=== PATIENT | male | born 1975 | race Caucasian/White ===

== ENCOUNTER 2017-06-12 15:21 | Emergency (ER) | payer SELFPAY ==
[2017-06-12 15:29] VITALS: BP 153/94
[2017-06-12] MEDS ORDERED: Sodium Chloride 0.9% 10 ML Syringe FLUSH PRN (15:38)
[2017-06-12] MEDS ORDERED: Sodium Chloride 0.9% 1,000 ML IV SCH (15:45)
--- NOTE | 2017-06-12 17:15 | EDM.PDOC ---
ED HPI GENERAL MEDICAL PROBLEM - General Chief Complaint: Flank Pain Stated Complaint: R SIDE PAIN Time Seen by Provider: 06/12/17 15:29 Source of Information: Reports: Patient History Limitations: Reports: No Limitations - History of Present Illness INITIAL COMMENTS - FREE TEXT/NARRATIVE: The patient presents with right flank pain that started earlier today. He also has some right sided abdominal pain. He has nausea but no vomiting. The pain is better. He took 4 shots of fireball. He has no dysuria and no hematuria. He has never had kidney stones. He still has his appendix. Onset: Sudden Duration: Hour(s): Location: Reports: Abdomen (Right side and right flank) Quality: Reports: Sharp Severity: Severe Improves with: Reports: None Worsens with: Reports: None Associated Symptoms: Reports: Nausea/Vomiting. Denies: Confusion, Fever/Chills , Headaches, Shortness of Breath Right Flank Pain Score (Numeric/FACES): 4 - Related Data Allergies Allergy/AdvReac Type Severity Reaction Status Date / Time No Known Allergies Allergy Verified 06/12/17 15:26 Home Meds: Home Meds Tamsulosin HCl [Flomax] 0.4 mg PO DAILY #7 cap.er.24h 06/12/17 [Rx] oxyCODONE HCl/Acetaminophen [Percocet 5-325 mg Tablet] 1 - 2 each PO Q6HR PRN # 20 tablet 06/12/17 [Rx] Past Medical History Cardiovascular History: Reports: Hypertension Musculoskeletal History: Reports: Fracture Psychiatric History: Reports: Anxiety - Past Surgical History Cardiovascular Surgical History: Reports: None Musculoskeletal Surgical History: Reports: None Social & Family History - Family History Family Medical History: Noncontributory - Tobacco Use Smoking Status *Q: Current Every Day Smoker Years of Tobacco use: 15 Packs/Tins Daily: 0.5 - Caffeine Use Caffeine Use: Reports: None - Recreational Drug Use Recreational Drug Use: No ED ROS GENERAL - Review of Systems Review Of Systems: See Below Constitutional: Reports: No Symptoms HEENT: Reports: No Symptoms Respiratory: Reports: No Symptoms Cardiovascular: Reports: No Symptoms Endocrine: Reports: No Symptoms GI/Abdominal: Reports: Abdominal Pain, Nausea. Denies: Diarrhea, Vomiting : Reports: Flank Pain (Right) ED EXAM, GI/ABD - Physical Exam Exam: See Below Exam Limited By: No Limitations General Appearance: Alert, No Apparent Distress Ears: Normal External Exam Nose: Normal Inspection Head: Atraumatic, Normocephalic Neck: Normal Inspection Respiratory/Chest: No Respiratory Distress, Lungs Clear, Normal Breath Sounds Cardiovascular: Regular Rate, Rhythm, No Edema, No Murmur GI/Abdominal Exam: Soft, Non-Tender, No Organomegaly, No Mass Back Exam: CVA Tenderness (R) (Mild) Course - Vital Signs Last Recorded V/S: Last Vital Signs Temp 98.5 F 06/12/17 15:26 Pulse 95 06/12/17 15:26 Resp 16 06/12/17 17:05 BP 153/94 H 06/12/17 15:26 Pulse Ox 98 06/12/17 17:05 - Orders/Labs/Meds Orders: Active Orders 24 hr Category Date Time Status Peripheral IV Care [RC] . DIRECTED Care 06/12/17 15:38 Active Abdomen Pelvis wo Cont [CT] Stat Exams 06/12/17 15:38 Taken Sodium Chloride 0.9% [Normal Saline] 1,000 ml Med 06/12/17 15:45 Active IV ASDIRECTED Sodium Chloride 0.9% [Saline Flush] Med 06/12/17 15:38 Active 10 ml FLUSH ASDIRECTED PRN Peripheral IV Insertion Adult [OM.PC] Stat Oth 06/12/17 15:38 Ordered Medication Orders Sodium Chloride (Normal Saline) 1,000 mls @ 125 mls/hr IV ASDIRECTED ADRIENNE Last Admin: 06/12/17 16:01 Dose: 125 mls/hr Sodium Chloride (Saline Flush) 10 ml FLUSH ASDIRECTED PRN PRN Reason: Keep Vein Open Last Admin: 06/12/17 16:02 Dose: 10 ml Labs: Laboratory Tests 06/12/17 06/12/17 06/12/17 Range/Units 15:55 15:55 15:55 WBC 6.85 (4.23-9.07) K/mm3 RBC 4.35 L (4.63-6.08) M/mm3 Hgb 14.1 (13.7-17.5) gm/L Hct 41.2 (40.1-51.0) % MCV 94.7 H (79.0-92.2) fl MCH 32.4 H (25.7-32.2) pg MCHC 34.2 (32.2-35.5) g/dl RDW Std Deviation 50.4 H (35.1-43.9) fL Plt Count 125 L (163-337) K/mm3 MPV 10.5 (9.4-12.3) fl Neut % (Auto) 67.1 (34.0-67.9) % Lymph % (Auto) 18.0 L (21.8-53.1) % Winn % (Auto) 13.6 H (5.3-12.2) % Eos % (Auto) 0.3 L (0.8-7.0) Baso % (Auto) 0.9 (0.1-1.2) % Neut # (Auto) 4.60 (1.78-5.38) K/mm3 Lymph # (Auto) 1.23 L (1.32-3.57) K/mm3 Winn # (Auto) 0.93 H (0.30-0.82) K/mm3 Eos # (Auto) 0.02 L (0.04-0.54) K/mm3 Baso # (Auto) 0.06 (0.01-0.08) K/mm3 Sodium 133 L (136-145) mEq/L Potassium 3.2 L (3.5-5.1) mEq/L Chloride 99 (98-107) mEq/L Carbon Dioxide 22 (21-32) mEq/L Anion Gap 15.2 H (5-15) BUN 9 (7-18) mg/dL Creatinine 0.9 (0.7-1.3) mg/dL Est Cr Clr Drug Dosing 126.49 mL/min Estimated GFR (MDRD) > 60 (>60) mL/min BUN/Creatinine Ratio 10.0 L (14-18) Glucose 127 H (74-106) mg/dL Calcium 9.2 (8.5-10.1) mg/dL Total Bilirubin 1.5 H (0.2-1.0) mg/dL AST 313 H (15-37) U/L ALT 144 H (16-63) U/L Alkaline Phosphatase 94 (46-116) U/L Total Protein 8.6 H (6.4-8.2) g/dl Albumin 3.4 (3.4-5.0) g/dl Globulin 5.2 gm/dL Albumin/Globulin Ratio 0.7 L (1-2) Lipase 346 (73-393) U/L Urine Color Yellow (Yellow) Urine Appearance Clear (Clear) Urine pH 6.5 (5.0-8.0) Ur Specific [place] 1.010 (1.005-1.030) Urine Protein Negative (Negative) Urine Glucose (UA) Negative (Negative) Urine Ketones Negative (Negative) Urine Occult Blood Trace-lysed H (Negative) Urine Nitrite Negative (Negative) Urine Bilirubin Negative (Negative) Urine Urobilinogen 0.2 (0.2-1.0) Ur Leukocyte Esterase Negative (Negative) Urine RBC 0-5 (0-5) /hpf Urine WBC 0-5 (0-5) /hpf Ur Epithelial Cells 0-5 (0-5) /hpf Urine Bacteria Not seen (FEW) /hpf Urine Mucus Not seen (FEW) /hpf Meds: Medications Generic Name Dose Route Start Last Admin Trade Name Freq PRN Reason Stop Dose Admin Sodium Chloride 1,000 mls @ 125 mls/hr 06/12/17 15:45 06/12/17 16:01 Normal Saline IV 125 mls/hr ASDIRECTED ADRIENNE Administration Sodium Chloride 10 ml 06/12/17 15:38 06/12/17 16:02 Saline Flush FLUSH 10 ml ASDIRECTED PRN Administration Keep Vein Open - Re-Assessments/Exams Free Text/Narrative Re-Assessment/Exam: 06/12/17 17:11 I ordered an IV NS at 125mL/hr, labs, UA and CT of his abdomen and pelvis to look for a kidney stone. His WBC was normal. His platelets were a little low at 125. His K was a little low at 3.2. His AST was elevated at 313. His ALT was elevated at 144. His lipase was normal. His UA shows blood but no UTI. His CT shows mild to moderate right perinephric stranding and hydronephrosis secondary to a 4mm calculus located in the right ureter at the level of L5. Remainder of findings as described above. He still does not have pain. I will get him on some percocet and flomax and follow up with Dr Man. Departure - Departure Time of Disposition: 17:15 Disposition: Home, Self-Care 01 Condition: Good Clinical Impression: Ureteric colic, Kidney stone on right side - Discharge Information Prescriptions: oxyCODONE HCl/Acetaminophen [Percocet 5-325 mg Tablet] 1 - 2 each PO Q6HR PRN # 20 tablet PRN Reason: Pain Tamsulosin HCl [Flomax] 0.4 mg PO DAILY #7 cap.er.24h Referrals: PCP,None [Primary Care Provider] - Levar Man MD [Physician] - 1 Week Forms: ED Department Discharge Additional Instructions: Drink plenty of fluids. Take percocet 1 to 2 pills by mouth as needed for pain. Take the flomax daily for 1 week. Please return if you are worse. - My Orders Last 24 Hours: My Active Orders 06/12/17 15:38 Peripheral IV Care [RC] . DIRECTED Abdomen Pelvis wo Cont [CT] Stat Sodium Chloride 0.9% [Saline Flush] 10 ml FLUSH ASDIRECTED PRN Peripheral IV Insertion Adult [OM.PC] Stat 06/12/17 15:45 Sodium Chloride 0.9% [Normal Saline] 1,000 ml IV ASDIRECTED - Assessment/Plan Last 24 Hours: My Active Orders 06/12/17 15:38 Peripheral IV Care [RC] . DIRECTED Abdomen Pelvis wo Cont [CT] Stat Sodium Chloride 0.9% [Saline Flush] 10 ml FLUSH ASDIRECTED PRN Peripheral IV Insertion Adult [OM.PC] Stat 06/12/17 15:45 Sodium Chloride 0.9% [Normal Saline] 1,000 ml IV ASDIRECTED
--- NOTE | 2017-06-13 11:07 | CT ---
CT abdomen and pelvis Technique: Multiple axial sections were obtained from above the kidneys inferiorly through the pubic symphysis. Intravenous and oral contrast was not utilized. Study has been performed as a ureteral stone protocol. Findings: Dilated collecting system of the right kidney is seen with surrounding inflammatory change around the proximal ureter and kidney. This finding is due to an obstructing stone within the mid right ureter measuring approximately 5 mm. No other abnormal calcifications are seen along the course of the ureters. Kidneys show no abnormal calcifications. Visualized lung bases show minimal atelectasis within the left base. Visualized portions of the noncontrast liver show no discrete abnormality. Spleen appears within normal limits. Adrenal glands show no nodule. Pancreas appears within normal limits. Gallbladder shows no calcified gallstones. Aorta shows no aneurysmal dilatation. No retroperitoneal adenopathy or mesenteric abnormalities are seen. Appendix is seen which appears normal. No pelvic mass or adenopathy is seen. Bone window settings were reviewed which appear within normal limits for the patient's age. Impression: 1. Proximal right-sided hydronephrosis caused by a 5 mm mid right ureteral stone. 2. Other incidental findings. Diagnostic code #3 I agree with preliminary report issued by [employer] ([facility] report finalized on 06/12/17, 5:35 PM Central Time)
== END 2017-06-12 17:25 | disposition home or self-care (01) ==
LOC: JD.ED 15:21
DX: N13.2 Hydronephrosis with renal and ureteral calculous obstruction (principal); I10 Essential (primary) hypertension; F17.210 Nicotine dependence, cigarettes, uncomplicated; Z79.899 Other long term (current) drug therapy
CPT/HCPCS: 36415; 74176; 80053; 81001; 83690; 85025; 96360; 99285; J7040; J7050; 99284

== ENCOUNTER 2017-12-19 17:17 | Emergency (ER) | payer SELFPAY ==
[2017-12-19 17:24] VITALS: BP 144/85
--- NOTE | 2017-12-19 17:37 | EDM.PDOC ---
ED HPI GENERAL MEDICAL PROBLEM - General Chief Complaint: Fever Stated Complaint: COUGH/CHEST TIGHTNESS Time Seen by Provider: 12/19/17 17:33 Source of Information: Reports: Patient History Limitations: Reports: No Limitations - History of Present Illness INITIAL COMMENTS - FREE TEXT/NARRATIVE: 42-year-old male presents to the ED with 2 day history of fever chills paroxysmal severe cough,bodyaches and headache. His son was diagnosed with influenza A the day prior to him becoming ill. Clinically he has all the signs and symptoms of influenza. Coughing till he vomits. Very poor appetite. He is taking fluids however. He did not have a flu shot this year. Onset: Sudden Onset Date: 12/17/17 Duration: Hour(s): Location: Reports: Head (Severe headache), Chest (Severe paroxysmal minimally productive cough to the point of posttussive emesis.), Generalized (Generalized myalgia, headache) Quality: Reports: Ache (Dates his bones ache.), Sharp (Scalp pain at times.), Stabbing, Other Severity: Severe (Paroxysmal severe cough) Improves with: Reports: Medication (Motrin helps a bit) Worsens with: Reports: Other (Lying down next cough worse.) Context: Reports: Sick Contact (Son diagnosed with influenza a 3 days ago.). Denies: Activity, Exercise, Lifting, Trauma, Other Associated Symptoms: Reports: Chest Pain (Occasional sputum production), Cough, cough w sputum, Diaphoresis, Fever/Chills, Headaches, Loss of Appetite, Malaise , Nausea/Vomiting, Weakness (Posttussive vomiting). Denies: No Other Symptoms, Confusion ( from coughing so much), Rash, Seizure, Shortness of Breath, Syncope Treatments CREDIT OFFICER: Reports: NSAIDS ( lies weakness Motrin. ) Generalized Pain Score (Numeric/FACES): 8 - Related Data Allergies Allergy/AdvReac Type Severity Reaction Status Date / Time No Known Allergies Allergy Verified 12/19/17 17:24 Home Meds: Home Meds Chlorpheniramine/HYDROcodone [Tussionex Pennkinetic] 5 ml PO Q12H PRN #75 ml [Rx] Oseltamivir [Tamiflu] 75 mg PO BID #10 cap 12/19/17 [Rx] Past Medical History Cardiovascular History: Reports: Hypertension Genitourinary History: Reports: Renal Calculus Musculoskeletal History: Reports: Fracture Psychiatric History: Reports: Anxiety - Past Surgical History Cardiovascular Surgical History: Reports: None Musculoskeletal Surgical History: Reports: None Social & Family History - Family History Family Medical History: Noncontributory - Tobacco Use Smoking Status *Q: Current Every Day Smoker Years of Tobacco use: 25 Packs/Tins Daily: 0.5 - Caffeine Use Caffeine Use: Reports: None - Alcohol Use Days Per Week of Alcohol Use: 7 Number of Drinks Per Day: 6 Total Drinks Per Week: 42 Date of Last Drink: 12/19/17 - Recreational Drug Use Recreational Drug Use: No - Living Situation & Occupation Living situation: Reports: , with Significant Other Occupation: Employed ED ROS GENERAL - Review of Systems Review Of Systems: See Below Constitutional: Reports: Fever, Chills, Malaise, Weakness, Fatigue, Diaphoresis , Decreased Appetite, Weight Loss HEENT: Reports: No Symptoms Respiratory: Reports: Cough, Other (Severe paroxysmal cough with occasional sputum production.). Denies: Wheezing, Pleuritic Chest Pain ( Coughing at times until he vomits.), Hemoptysis Cardiovascular: Reports: Chest Pain, Blood Pressure Problem (Coughing so much), Dyspnea on Exertion, Lightheadedness. Denies: Claudication, Edema (From coughing so hard.), Orthopnea ( has chronic hypertension usually well- controlled with medication), Palpitations Endocrine: Reports: Fatigue (Severe) GI/Abdominal: Reports: Decreased Appetite (Severe decrease in appetite for solids), Nausea, Vomiting (Posttussive vomiting) : Reports: No Symptoms Musculoskeletal: Reports: Muscle Pain (Generalized severe myalgia. Patient comments his bones hurt.) Skin: Reports: No Symptoms Neurological: Reports: Dizziness, Headache, Weakness. Denies: Numbness, Pre- Existing Deficit, Seizure, Syncope, Tingling, Trouble Speaking, Difficulty Walking, Change in Speech, Gait Disturbance Psychiatric: Reports: No Symptoms Hematologic/Lymphatic: Reports: No Symptoms Immunologic: Reports: No Symptoms ED EXAM, GENERAL - Physical Exam Exam: See Below Exam Limited By: No Limitations General Appearance: Alert, WD/WN, Moderate Distress (Looks ill. He is febrile on exam.) Eye Exam: Right Eye: PERRL (Has pain on lateral gaze compatible with inflammation of the lateral rectus), Bilateral Eye: Normal Inspection Ears: Normal TMs Throat/Mouth: Normal Inspection, Normal Lips, Normal Oropharynx Head: Atraumatic, Normocephalic Neck: Normal Inspection, Supple, Non-Tender, Full Range of Motion. No: Lymphadenopathy (L), Lymphadenopathy (R) Respiratory/Chest: Lungs Clear, No Accessory Muscle Use, Decreased Breath Sounds (Decreased breath sounds to lower 30% of his lung balderas. Clinically has early emphysema changes.). No: Rhonchi, Wheezing Cardiovascular: Normal Peripheral Pulses, Regular Rate, Rhythm, No Edema, No Murmur Peripheral Pulses: 2+: Posterior Tibial (L), Posterior Tibial (R), Dorsalis Pedis (L), Dorsalis Pedis (R) GI/Abdominal: Normal Bowel Sounds, Soft, Non-Tender, No Organomegaly Extremities: Normal Inspection, Normal Range of Motion, Non-Tender, No Pedal Edema Neurological: Alert, Oriented, CN II-XII Intact, Normal Cognition Psychiatric: Normal Affect, Normal Mood Skin Exam: Warm, Dry, Intact, Normal Color, No Rash Course - Vital Signs Last Recorded V/S: Last Vital Signs Temp 38.6 C H 12/19/17 17:20 Pulse 112 H 12/19/17 17:20 Resp 13 12/19/17 17:20 BP 144/85 H 12/19/17 17:20 Pulse Ox 97 12/19/17 17:20 - Radiology Interpretation Free Text/Narrative:: 42-year-old male presents the ED with acute onset of fever chills headache and paroxysmal cough without any appetite 2 days. His son was diagnosed with influenza A 3 days ago. Clinically he has all the same signs and symptoms of influenza infection. He will often not be tested. Treated with Tamiflu 75 mg twice a day for 5 days. Tussionex cough syrup 5 mils every 12 hours. For cough relief. Motrin 600 mg every 6 hours to relieve pain and inflammation and headache. Excuse him from the work place for the next 5 days due to being contagious to others. Departure - Departure Time of Disposition: 17:33 Disposition: Home, Self-Care 01 Condition: Fair Clinical Impression: Influenza - Discharge Information Prescriptions: Chlorpheniramine/HYDROcodone [Tussionex Pennkinetic] 5 ml PO Q12H PRN #75 ml PRN Reason: cough relief Oseltamivir [Tamiflu] 75 mg PO BID #10 cap Instructions: Influenza, Adult, [id number] Referrals: PCP,None [Primary Care Provider] - Forms: ED Department Discharge, ED Return to Work/School Form Additional Instructions: Evaluation in the emergency him today in regards to symptom complex of high fever generalized body aches headache and severe paroxysmal cough with loss of appetite or sinus symptoms of influenza virus. One of her children was diagnosed with influenza A a day before you became ill. Therefore you are not tested for the virus as you're clinically positive. Even is Motrin 600 mg every 6 hours for relief of headache bodyache and fever. Plenty of fluids and diet as tolerated. Start Tamiflu antiviral medications any 5 mg twice daily for the next 5 days to bring the infection under control usually after the third or fourth dose of medication. Surface Tussionex 5 mils every 12 hours as needed for cough relief. Take a good hour before bed as it takes about an hour to start to work. It is sedating and you should not be operating a motor vehicle if you take the cough syrup. Out of work at least until Saturday or Saturday next week as you are considered contagious for 7 days from the time he became ill.
== END 2017-12-19 17:50 | disposition home or self-care (01) ==
LOC: JD.ED 17:17
DX: J11.1 Influenza due to unidentified influenza virus with other respiratory manifestations (principal); I10 Essential (primary) hypertension; F17.210 Nicotine dependence, cigarettes, uncomplicated
CPT/HCPCS: 99283

== ENCOUNTER 2018-01-19 02:41 | Emergency (ER) | payer MEDICAID, OTHER ==
[2018-01-19 02:59] VITALS: BP 158/89
[2018-01-19] MEDS ORDERED: Diphtheria,Pertussis(Acell),Tetanus Vaccine 0.5 ML SDV IM ONE (03:12)
[2018-01-19] MEDS ORDERED: Ibuprofen 600 MG Tab PO ONE (03:13)
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
--- NOTE | 2018-01-19 16:52 | CT ---
CT facial bones Technique: Multiple axial sections through the facial bones were obtained. Intravenous contrast was not utilized. Reconstructed coronal and sagittal images were reviewed. Comparison: No previous facial bone study. Findings: Soft tissue swelling is identified within both cheeks and periorbital regions, worse on the left side. Soft tissue swelling is noted around the nose. Mildly displaced nasal bone fractures are seen. Soft tissue densities are seen within both maxillary sinuses most likely representing combination of blood and mucosal thickening from previous chronic sinusitis. Mild mucosal thickening is seen within portions of the ethmoid sinuses. Right and left globes are symmetric. No fracture is seen around the orbits. Mandible appears intact. Scattered dental caries are noted. Impression: 1. Blood and pre-existing chronic sinusitis within the maxillary and ethmoid sinuses. 2. Soft tissue swelling around both orbital regions as well as nose and bilateral cheek. 3. Nasal bone fracture showing mild displacement. 4. Dental caries. Diagnostic code #3 Agree with preliminary report issued by [facility] ([facility] preliminary report dictated on 01/19/18, 5:37 AM Central Time)
== END 2018-01-19 05:12 | disposition home or self-care (01) ==
LOC: JD.ED 02:41
DX: S02.2XXA Fracture of nasal bones, initial encounter for closed fracture (principal); S01.112A Laceration without foreign body of left eyelid and periocular area, initial encounter; F17.210 Nicotine dependence, cigarettes, uncomplicated; F41.9 Anxiety disorder, unspecified; Y04.8XXA Assault by other bodily force, initial encounter; Z87.442 Personal history of urinary calculi; I10 Essential (primary) hypertension; Z23 Encounter for immunization; F10.129 Alcohol abuse with intoxication, unspecified
CPT/HCPCS: 70486; 90471; 90715; 99284; A9270

== ENCOUNTER 2018-11-01 14:27 | Emergency (ER) | payer SELFPAY ==
--- NOTE | 2018-11-01 16:39 | EDM.PDOC ---
ED HPI GENERAL MEDICAL PROBLEM - General Chief Complaint: Drug or Alcohol Abuse Stated Complaint: SIDE PAIN AND FILLING UP WITH FLUID Time Seen by Provider: 11/01/18 14:44 Source of Information: Reports: Patient, RN Notes Reviewed, Other (Friend/ Roomate) History Limitations: Reports: Intoxication - History of Present Illness INITIAL COMMENTS - FREE TEXT/NARRATIVE: The patient states that he has been experiencing generalized abdominal pain on and off for the past month, and that it redeveloped this morning. No nausea or vomiting. No hematemesis. No constipation or diarrhea. The patient is uncertain if he has had dysuria or not. No recent fever or cough. No dyspnea. The patient is clinically intoxicated. He states that he has been drinking about half a pint a Fireball whiskey per day, with his most recent drink around 14:15 this afternoon, just prior to coming to the ED. He states that he did not want to come to the ED, but that his friend/roommate made him come. The patient is a chronic daily alcoholic, but was sober for about 3 weeks when previously admitted. His last inpatient alcohol treatment was around 2005, but he has not attended outpatient treatment since then. Medical records indicate that the patient has previously been diagnosed with cirrhosis, presumably alcoholic, and had previously been prescribed Aldactone and Lasix, but, the patient states, that when his prescriptions ran out, he failed to follow-up with an outpatient provider, and he did not get his prescriptions refilled. He was seen in this ED on 10/24/2018, where he received a therapeutic paracentesis of approximately 10 L of ascites. He was admitted to the Hospitalist, where he was given IV albumin and 2 units of PRBCs. He left AMA the following day, 10/25/2018. The patient does not have a PCP. Abdominal Pain Score (Numeric/FACES): 2 - Related Data Allergies Allergy/AdvReac Type Severity Reaction Status Date / Time No Known Allergies Allergy Verified 11/01/18 14:42 Home Meds: Home Meds Furosemide [Lasix] 40 mg PO DAILY #30 tablet 09/17/18 [Rx] Bumetanide [Bumex] 1 tab PO QAM #20 tab 11/01/18 [Rx] Past Medical History Cardiovascular History: Reports: Hypertension (untreated) Gastrointestinal History: Reports: Cirrhosis (presumably alcoholic, with ascites , untreated) Genitourinary History: Reports: Renal Calculus Musculoskeletal History: Reports: Fracture (nose) Psychiatric History: Reports: Addiction (alcohol), Anxiety (untreated) - Past Surgical History GI Surgical History: Reports: Other (See Below) (Therapeutic paracentesis 2017) Social & Family History - Family History Family Medical History: Noncontributory - Tobacco Use Smoking Status *Q: Current Every Day Smoker Years of Tobacco use: 26 Packs/Tins Daily: 0.5 Packs/Tins Daily Comment: Down from 1 ppd - Caffeine Use Caffeine Use: Reports: None - Alcohol Use Alcohol Use History: Yes Days Per Week of Alcohol Use: 7 Number of Drinks Per Day: 4 Total Drinks Per Week: 28 Alcohol Use Frequency: Daily - Recreational Drug Use Recreational Drug Use: Yes Drug Use in Last 12 Months: No Recreational Drug Type: Reports: Marijuana/Hashish (last smoked late 2016) Recreational Drug Use Frequency: Socially - Living Situation & Occupation Living situation: Reports: (), Other (Roomate/friend) 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 ED EXAM, GI/ABD - Physical Exam Exam: See Below Exam Limited By: No Limitations General Appearance: WD/WN, No Apparent Distress, Other (smells of alcohol) Eyes: Bilateral: Normal Appearance, EOMI Ears: Normal External Exam Nose: Normal Inspection Throat/Mouth: Normal Inspection, Normal Lips, Normal Voice, No Airway Compromise Head: Atraumatic, Normocephalic Neck: Normal Inspection, Full Range of Motion Respiratory/Chest: No Respiratory Distress, Lungs Clear, Normal Breath Sounds, No Accessory Muscle Use Cardiovascular: Normal Peripheral Pulses, No Gallop, No JVD, No Murmur, No Rub, Tachycardia (regular) GI/Abdominal Exam: Normal Bowel Sounds, Soft, Non-Tender, No Abnormal Bruit, Distended (significant, consistent with ascites, but not tense), Tender (mild, generalized, non-focal) (Male) Exam: Deferred Rectal (Males) Exam: Deferred Back Exam: Normal Inspection, Full Range of Motion, NT Extremities: Normal Range of Motion, Normal Capillary Refill, Other (3 to 4+ pretibial pitting edema, bilaterally) Neurological: No Motor/Sensory Deficits, Other (slurred speech, consistent with alcohol intoxication) Psychiatric: Other (unable to assess) Skin Exam: Warm, Dry, Intact, Normal Color, No Rash Course - Vital Signs Last Recorded V/S: Last Vital Signs Temp 37.0 C 11/01/18 14:42 Pulse 121 H 11/01/18 18:20 Resp 19 11/01/18 17:35 BP 131/87 11/01/18 18:20 Pulse Ox 97 11/01/18 17:35 - Orders/Labs/Meds Labs: Laboratory Tests 11/01/18 11/01/18 11/01/18 Range/Units 13:29 13:29 13:29 WBC 6.05 (4.23-9.07) K/mm3 RBC 3.66 L (4.63-6.08) M/mm3 Hgb 9.7 L (13.7-17.5) gm/L Hct 30.4 L (40.1-51.0) % MCV 83.1 (79.0-92.2) fl MCH 26.5 (25.7-32.2) pg MCHC 31.9 L (32.2-35.5) g/dl RDW Std Deviation 61.0 H (35.1-43.9) fL Plt Count 182 (163-337) K/mm3 MPV 8.5 L (9.4-12.3) fl Neutrophils % (Manual) 58 (40-60) % Band Neutrophils % 0 (0-10) % Lymphocytes % (Manual) 32 (20-40) % Atypical Lymphs % 0 % Monocytes % (Manual) 9 (2-10) % Eosinophils % (Manual) 1 (0.8-7.0) % Basophils % (Manual) 0 L (0.2-1.2) Platelet Estimate Adequate RBC Morph Comment Normal PT 14.1 H (9.5-12.1) SECONDS INR 1.30 APTT 27 (24-31) SECONDS Sodium 142 (136-145) mEq/L Potassium 3.4 L (3.5-5.1) mEq/L Chloride 108 H (98-107) mEq/L Carbon Dioxide 25 (21-32) mEq/L Anion Gap 12.4 (5-15) BUN 12 (7-18) mg/dL Creatinine 0.7 (0.7-1.3) mg/dL Est Cr Clr Drug Dosing 160.95 mL/min Estimated GFR (MDRD) > 60 (>60) mL/min BUN/Creatinine Ratio 17.1 (14-18) Glucose 114 H (74-106) mg/dL Lactic Acid (0.4-2.0) mmol/L Calcium 8.0 L (8.5-10.1) mg/dL Magnesium 2.0 (1.8-2.4) mg/dl Total Bilirubin 1.7 H (0.2-1.0) mg/dL AST 99 H (15-37) U/L ALT 26 (16-63) U/L Alkaline Phosphatase 131 H (46-116) U/L Total Protein 7.4 (6.4-8.2) g/dl Albumin 2.4 L (3.4-5.0) g/dl Globulin 5.0 gm/dL Albumin/Globulin Ratio 0.5 L (1-2) Lipase 594 H (73-393) U/L Urine Color (Yellow) Urine Appearance (Clear) Urine pH (5.0-8.0) Ur Specific [place] (1.005-1.030) Urine Protein (Negative) Urine Glucose (UA) (Negative) Urine Ketones (Negative) Urine Occult Blood (Negative) Urine Nitrite (Negative) Urine Bilirubin (Negative) Urine Urobilinogen (0.2-1.0) Ur Leukocyte Esterase (Negative) Urine RBC (0-5) /hpf Urine WBC (0-5) /hpf Ur Epithelial Cells (0-5) /hpf Urine Bacteria (FEW) /hpf Urine Mucus (FEW) /hpf Urine Opiates Screen (NEGATIVE) Ur Buprenorphine Scrn (NEGATIVE) Ur Oxycodone Screen (NEGATIVE) Urine Methadone Screen (NEGATIVE) Ur Propoxyphene Screen (NEGATIVE) Ur Barbiturates Screen (NEGATIVE) Ur Tricyclics Screen (NEGATIVE) Ur Phencyclidine Scrn (NEGATIVE) Ur Amphetamine Screen (NEGATIVE) U Methamphetamines Scrn (NEGATIVE) U Benzodiazepines Scrn (NEGATIVE) U Cocaine Metab Screen (NEGATIVE) U Marijuana (THC) Screen (NEGATIVE) Ethyl Alcohol 0.23 (0.00) gm% 11/01/18 11/01/18 11/01/18 Range/Units 15:45 18:29 18:29 WBC (4.23-9.07) K/mm3 RBC (4.63-6.08) M/mm3 Hgb (13.7-17.5) gm/L Hct (40.1-51.0) % MCV (79.0-92.2) fl MCH (25.7-32.2) pg MCHC (32.2-35.5) g/dl RDW Std Deviation (35.1-43.9) fL Plt Count (163-337) K/mm3 MPV (9.4-12.3) fl Neutrophils % (Manual) (40-60) % Band Neutrophils % (0-10) % Lymphocytes % (Manual) (20-40) % Atypical Lymphs % % Monocytes % (Manual) (2-10) % Eosinophils % (Manual) (0.8-7.0) % Basophils % (Manual) (0.2-1.2) Platelet Estimate RBC Morph Comment PT (9.5-12.1) SECONDS INR APTT (24-31) SECONDS Sodium (136-145) mEq/L Potassium (3.5-5.1) mEq/L Chloride (98-107) mEq/L Carbon Dioxide (21-32) mEq/L Anion Gap (5-15) BUN (7-18) mg/dL Creatinine (0.7-1.3) mg/dL Est Cr Clr Drug Dosing mL/min Estimated GFR (MDRD) (>60) mL/min BUN/Creatinine Ratio (14-18) Glucose (74-106) mg/dL Lactic Acid 2.4 H (0.4-2.0) mmol/L Calcium (8.5-10.1) mg/dL Magnesium (1.8-2.4) mg/dl Total Bilirubin (0.2-1.0) mg/dL AST (15-37) U/L ALT (16-63) U/L Alkaline Phosphatase (46-116) U/L Total Protein (6.4-8.2) g/dl Albumin (3.4-5.0) g/dl Globulin gm/dL Albumin/Globulin Ratio (1-2) Lipase (73-393) U/L Urine Color Corinne H (Yellow) Urine Appearance Cloudy H (Clear) Urine pH 6.0 (5.0-8.0) Ur Specific [place] 1.025 (1.005-1.030) Urine Protein 1+ H (Negative) Urine Glucose (UA) Trace H (Negative) Urine Ketones 1+ H (Negative) Urine Occult Blood Negative (Negative) Urine Nitrite Negative (Negative) Urine Bilirubin 3+ H (Negative) Urine Urobilinogen >=8.0 H (0.2-1.0) Ur Leukocyte Esterase Negative (Negative) Urine RBC 0-5 (0-5) /hpf Urine WBC 0-5 (0-5) /hpf Ur Epithelial Cells 0-5 (0-5) /hpf Urine Bacteria Few (FEW) /hpf Urine Mucus Moderate H (FEW) /hpf Urine Opiates Screen Negative (NEGATIVE) Ur Buprenorphine Scrn Negative (NEGATIVE) Ur Oxycodone Screen Negative (NEGATIVE) Urine Methadone Screen Negative (NEGATIVE) Ur Propoxyphene Screen Negative (NEGATIVE) Ur Barbiturates Screen Negative (NEGATIVE) Ur Tricyclics Screen Negative (NEGATIVE) Ur Phencyclidine Scrn Negative (NEGATIVE) Ur Amphetamine Screen Negative (NEGATIVE) U Methamphetamines Scrn Negative (NEGATIVE) U Benzodiazepines Scrn Negative (NEGATIVE) U Cocaine Metab Screen Negative (NEGATIVE) U Marijuana (THC) Screen Negative (NEGATIVE) Ethyl Alcohol (0.00) gm% Meds: Medications Discontinued Medications Generic Name Dose Route Start Last Admin Trade Name Freq PRN Reason Stop Dose Admin Bumetanide 1 mg 11/01/18 16:56 11/01/18 17:35 Bumex PO 11/01/18 16:57 1 mg ONETIME ONE Administration - Re-Assessments/Exams Free Text/Narrative Re-Assessment/Exam: 11/01/18 16:18 2-view chest radiograph appears to be grossly normal. The cardiac silhouette is within normal limits. No pulmonary vascular congestion. No pleural effusions. No focal infiltrate. No pneumothorax. Formal read per the Radiologist pending. 11/01/18 16:55 There is a delay in disposition, as the patient has not yet provided a urine sample. The patient does not currently take any medications, however, it is reasonable to assume that he has intestinal edema, therefore oral Lasix would not be the best agent for him. I have therefore ordered 1 mg oral Bumex, which is less sensitive to intestinal edema. If this causes diuresis, I can prescribe some for him. 11/01/18 19:13 Test results discussed with the patient and his friend. I was very blunt with the patient. I explained that at the rate the patient is going, he will likely be from liver failure within a year, and that his only real hope is a liver transplant, but that he cannot be on the transplant list unless he has been sober for 6 months. He therefore needs to stop drinking now. I encouraged him to follow-up at [facility] in order to achieve that. In the meantime, I will prescribe oral Bumex, that he can start taking once a day, to start, and have him follow-up with Dr. Fraser this coming 11/03/2018. She can prescribe additional medications as she sees fit. If the patient can remain sober and follow a medication regimen, she can refer him to a [facility] for consideration for a liver transplant. The patient expressed understanding. Departure - Departure Time of Disposition: 19:21 Disposition: Home, Self-Care 01 Condition: Fair Clinical Impression: Alcoholic cirrhosis, Alcohol dependence, binge pattern, Coagulopathy Ascites Qualifiers: Ascites type: due to alcoholic cirrhosis Qualified Code(s): K70.31 - Alcoholic cirrhosis of liver with ascites Alcohol intoxication Qualifiers: Complication of substance-induced condition: with unspecified complication Qualified Code(s): F10.929 - Alcohol use, unspecified with intoxication, unspecified - Discharge Information *PRESCRIPTION DRUG MONITORING PROGRAM REVIEWED*: Not Applicable *COPY OF PRESCRIPTION DRUG MONITORING REPORT IN PATIENT BAO: Not Applicable Prescriptions: Bumetanide [Bumex] 1 tab PO QAM #20 tab Instructions: Alcoholic Liver Disease, [id number], Alcohol Intoxication, Easy -to-Read, Ascites Referrals: Lilli Fraser MD [Physician] - Additional Instructions: You were seen in the emergency room for abdominal pain and distention. Workup in the ER included blood work, a urinalysis, a urine drug screen, and a chest x-ray. Your workup found your alcohol level to be significantly elevated at 0.23. This is nearly 3 times the legal limit for driving. While you were found to have ascites, the ascites was not so severe as to require an emergent paracentesis (drainage). As discussed, we strongly recommend that you stop drinking. Please follow-up at [facility]: [address] [place] [phone] A prescription for the diuretic (water pill) Bumex has been sent to the [facility], located in the [facility] grocery store. Take one tablet every morning, as prescribed. Follow-up with Dr. Lilli Thompson in the clinic this coming 11/03/2018. If any other problems, please do not hesitate to return to the ER.
[2018-11-01] MEDS ORDERED: Bumetanide 1 MG Tab PO ONE (16:56)
[2018-11-01 18:21] VITALS: BP 131/87
--- NOTE | 2018-11-02 08:44 | CR ---
Chest: Two views of the chest were obtained. Comparison: No prior chest x-ray. Heart size and mediastinum are normal. Lungs are clear. Bony structures are unremarkable for the patient's age. Impression: 1. Nothing acute is seen on two-view chest x-ray. Diagnostic code #1
== END 2018-11-01 19:33 | disposition home or self-care (01) ==
LOC: JD.ED 14:27
DX: K70.31 Alcoholic cirrhosis of liver with ascites (principal); F10.229 Alcohol dependence with intoxication, unspecified; Y90.7 Blood alcohol level of 200-239 mg/100 ml; F17.210 Nicotine dependence, cigarettes, uncomplicated; D68.9 Coagulation defect, unspecified
CPT/HCPCS: 36415; 71046; 80053; 80306; 81001; 83605; 83690; 83735; 85007; 85027; 85610; 85730; 99285; A9270; G0480

== ENCOUNTER 2018-12-10 00:36 | Emergency (ER) | payer SELFPAY ==
--- NOTE | 2018-12-10 00:49 | EDM.PDOC ---
ED HPI GENERAL MEDICAL PROBLEM - General Chief Complaint: Respiratory Problem Stated Complaint: SHORT OF BREATH Time Seen by Provider: 12/10/18 00:49 - History of Present Illness INITIAL COMMENTS - FREE TEXT/NARRATIVE: 43-year-old male presents emergency room with increasing shortness of breath secondary to his ascites. Patient has long-standing alcoholism. He has advanced liver diseases been diagnosed with cirrhosis presumably alcoholic in the past. The patient is supposed to be taking Bumex 1 mg a day he did not take it yesterday. He has a long history of noncompliance. Patient was recently admitted into the hospital he had a paracentesis with a large volume of fluid removed however according to the patient within a couple of days was right pectoral was. On that hospital stay he signed out AMA the first full day. The patient is been told no uncertain terms he's kill himself by drinking and his only reasonable chance of living at this point is probably to get a liver transplant and to do this he needs to be sober for 6 months to a year the patient tells me he's not interested in doing this. He has been sent bad [facility] several times and has not followed up with them. - Related Data Allergies Allergy/AdvReac Type Severity Reaction Status Date / Time No Known Allergies Allergy Verified 11/01/18 14:42 Home Meds: Home Meds Furosemide [Lasix] 40 mg PO DAILY #30 tablet 09/17/18 [Rx] Bumetanide [Bumex] 1 tab PO QAM #20 tab 11/01/18 [Rx] Past Medical History - Past Health History Medical/Surgical History: Denies Medical/Surgical History Cardiovascular History: Reports: Hypertension (untreated) Gastrointestinal History: Reports: Cirrhosis (presumably alcoholic, with ascites , untreated) Genitourinary History: Reports: Renal Calculus Musculoskeletal History: Reports: Fracture (nose) Psychiatric History: Reports: Addiction (alcohol), Anxiety (untreated) - Past Surgical History GI Surgical History: Reports: Other (See Below) (Therapeutic paracentesis 2017) Social & Family History - Family History Family Medical History: Noncontributory - Caffeine Use Caffeine Use: Reports: None - Living Situation & Occupation Living situation: Reports: (), Other (Roomate/friend) 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 Denies: Wheezing, Pleuritic Chest Pain, Cough, Sputum, Hemoptysis Cardiovascular: Denies: Chest Pain, Dyspnea on Exertion, Palpitations, Syncope GI/Abdominal: Reports: Abdominal Pain (Some mild discomfort this is chronic). Denies: Diarrhea, Distension, Vomiting : Reports: No Symptoms Musculoskeletal: Reports: No Symptoms Skin: Reports: No Symptoms Neurological: Reports: Other (Lightheadedness) Psychiatric: Reports: No Symptoms ED EXAM, GENERAL - Physical Exam Exam: See Below Exam Limited By: Other (He appears to be intoxicated) General Appearance: Alert, No Apparent Distress Eye Exam: Bilateral Eye: Normal Inspection Ears: Normal External Exam, Normal Canal, Hearing Grossly Normal, Normal TMs Nose: Normal Inspection, Normal Mucosa, No Blood Throat/Mouth: Normal Inspection, Normal Lips, Normal Gums, Normal Oropharynx, Normal Voice, No Airway Compromise Head: Atraumatic, Normocephalic Neck: Normal Inspection, Supple, Non-Tender, Full Range of Motion Respiratory/Chest: No Respiratory Distress, Lungs Clear, Normal Breath Sounds Cardiovascular: Regular Rate, Rhythm, No Murmur. No: No Edema GI/Abdominal: Normal Bowel Sounds, Soft, Other (Distention from ascites minimal discomfort) Back Exam: Normal Inspection. No: CVA Tenderness (L), CVA Tenderness (R), Vertebral Tenderness Extremities: Pedal Edema, Redness. No: Increased Warmth Course - Vital Signs Last Recorded V/S: Last Vital Signs Temp 36.8 C 12/10/18 00:49 Pulse 116 H 12/10/18 00:49 Resp 20 12/10/18 00:49 BP 151/84 H 12/10/18 00:49 Pulse Ox 99 12/10/18 00:49 Orthostatic Blood Pressure [ 110/58 Standing] Orthostatic Blood Pressure [ 134/67 Sitting] Orthostatic Blood Pressure [ 133/71 Supine] - Orders/Labs/Meds Orders: Active Orders 24 hr Category Date Time Status Orthostatic Vital Signs [RC] ASDIRECTED Care 12/10/18 02:02 Active Labs: Laboratory Tests 12/10/18 12/10/18 12/10/18 Range/Units 01:14 01:52 01:52 PT 15.5 H (9.5-12.1) SECONDS INR 1.43 Sodium 141 (136-145) mEq/L Potassium 3.8 (3.5-5.1) mEq/L Chloride 106 (98-107) mEq/L Carbon Dioxide 25 (21-32) mEq/L Anion Gap 13.8 (5-15) BUN 10 (7-18) mg/dL Creatinine 0.7 (0.7-1.3) mg/dL Est Cr Clr Drug Dosing 156.57 mL/min Estimated GFR (MDRD) > 60 (>60) mL/min BUN/Creatinine Ratio 14.3 (14-18) Glucose 100 (74-106) mg/dL Calcium 7.8 L (8.5-10.1) mg/dL Total Bilirubin 1.1 H (0.2-1.0) mg/dL Direct Bilirubin 0.70 H (0.0-0.2) mg/dl Indirect Bilirubin 0.40 AST 129 H (15-37) U/L ALT 27 (16-63) U/L Alkaline Phosphatase 167 H (46-116) U/L Ammonia 100 H (11-32) umol/L Total Protein 7.4 (6.4-8.2) g/dl Albumin 2.4 L (3.4-5.0) g/dl Globulin 5.0 gm/dL Albumin/Globulin Ratio 0.5 L (1-2) Lipase 558 H (73-393) U/L Urine Color (Yellow) Urine Appearance (Clear) Urine pH (5.0-8.0) Ur Specific [place] (1.005-1.030) Urine Protein (Negative) Urine Glucose (UA) (Negative) Urine Ketones (Negative) Urine Occult Blood (Negative) Urine Nitrite (Negative) Urine Bilirubin (Negative) Urine Urobilinogen (0.2-1.0) Ur Leukocyte Esterase (Negative) Urine RBC (0-5) /hpf Urine WBC (0-5) /hpf Ur Epithelial Cells (0-5) /hpf Amorphous Sediment (NOT SEEN) /hpf Urine Bacteria (FEW) /hpf Urine Mucus (FEW) /hpf Ethyl Alcohol 0.24 (0.00) gm% 12/10/18 Range/Units 02:35 PT (9.5-12.1) SECONDS INR Sodium (136-145) mEq/L Potassium (3.5-5.1) mEq/L Chloride (98-107) mEq/L Carbon Dioxide (21-32) mEq/L Anion Gap (5-15) BUN (7-18) mg/dL Creatinine (0.7-1.3) mg/dL Est Cr Clr Drug Dosing mL/min Estimated GFR (MDRD) (>60) mL/min BUN/Creatinine Ratio (14-18) Glucose (74-106) mg/dL Calcium (8.5-10.1) mg/dL Total Bilirubin (0.2-1.0) mg/dL Direct Bilirubin (0.0-0.2) mg/dl Indirect Bilirubin AST (15-37) U/L ALT (16-63) U/L Alkaline Phosphatase (46-116) U/L Ammonia (11-32) umol/L Total Protein (6.4-8.2) g/dl Albumin (3.4-5.0) g/dl Globulin gm/dL Albumin/Globulin Ratio (1-2) Lipase (73-393) U/L Urine Color Corinne H (Yellow) Urine Appearance Clear (Clear) Urine pH 6.0 (5.0-8.0) Ur Specific [place] 1.025 (1.005-1.030) Urine Protein 1+ H (Negative) Urine Glucose (UA) Trace H (Negative) Urine Ketones 1+ H (Negative) Urine Occult Blood Negative (Negative) Urine Nitrite Negative (Negative) Urine Bilirubin 2+ H (Negative) Urine Urobilinogen >=8.0 H (0.2-1.0) Ur Leukocyte Esterase Negative (Negative) Urine RBC 0-5 (0-5) /hpf Urine WBC 0-5 (0-5) /hpf Ur Epithelial Cells 0-5 (0-5) /hpf Amorphous Sediment Few H (NOT SEEN) /hpf Urine Bacteria Moderate H (FEW) /hpf Urine Mucus Many H (FEW) /hpf Ethyl Alcohol (0.00) gm% Meds: Medications Discontinued Medications Generic Name Dose Route Start Last Admin Trade Name Freq PRN Reason Stop Dose Admin Bumetanide 1 mg 12/10/18 01:47 12/10/18 02:08 Bumex PO 12/10/18 01:48 1 mg ONETIME ONE Administration Spironolactone 25 mg 12/10/18 02:23 12/10/18 02:42 Aldactone PO 12/10/18 02:24 25 mg ONETIME ONE Administration - Re-Assessments/Exams Free Text/Narrative Re-Assessment/Exam: 12/10/18 03:09 Patient would like to go home and still waiting on his urine is blood alcohol 0.24 ammonia is 100 however does not appear to be encephalopathic. Remaining labs reviewed lipase is elevated but it isn't a comparable range to work has been for him. INR is 1.4. We just got the urine and informed him of this and so far he is going to stay. With further discussion with the patient apparently Dr. Fraser told him to increase his Bumex to twice a day and started him on a new diuretic I am uncertain to what the new diuretic is. I have given him spironolactone 25 mg here however a more ideal dose would be 100 mg in conjunction with Bumex 1 mg. I have not given him more because of his mild orthostatic readings and dizziness is what brought him in tonight. I had a long discussion with the patient saline this dizziness if due to volume contraction in the intervascular spaces is getting to be something he's been need to learn to tolerate because he is given a half to be a little on the dry side to help facilitate movement of the fluids. I explained to him in no uncertain terms that I will not tap him because it just really accumulates very rapidly and that 's been his experience in the past and with the risk of infection and other derangements it's not worth the risk. 12/10/18 03:47 Analysis is unrevealing no signs of infection obviously obviously it has a little bit of bilirubin and it. Patient needs to follow-up with Dr. Fraser for adjustment of his diuretic therapy I would imagine the Bumex in conjunction with the spironolactone would be the best course at this point. Departure - Departure Time of Disposition: 03:48 Disposition: Home, Self-Care 01 Clinical Impression: Alcoholic cirrhosis of liver with ascites - Discharge Information Referrals: Lilli Farser MD [Primary Care Provider] - Forms: ED Department Discharge Additional Instructions: Return to the emergency room with any questions or problems. Follow-up with Dr. Fraser today. Take all your medications as directed and make a list of everything you're taking so we can more appropriately adjust her medications if needed. Go to [facility] and discussed ways to quit drinking. - My Orders Last 24 Hours: My Active Orders 12/10/18 02:02 Orthostatic Vital Signs [RC] ASDIRECTED - Assessment/Plan Last 24 Hours: My Active Orders 12/10/18 02:02 Orthostatic Vital Signs [RC] ASDIRECTED
[2018-12-10 00:52] VITALS: BP 151/84
[2018-12-10] MEDS ORDERED: Bumetanide 1 MG Tab PO ONE (01:47)
[2018-12-10] MEDS ORDERED: Spironolactone 25 MG Tab PO ONE (02:23)
== END 2018-12-10 04:00 | disposition home or self-care (01) ==
LOC: JD.ED 00:36
DX: K70.31 Alcoholic cirrhosis of liver with ascites (principal)
CPT/HCPCS: 36415; 80048; 80076; 81001; 82140; 83690; 85610; 99285; A9270; G0480; 99283

== ENCOUNTER 2018-12-23 03:33 | Emergency (ER) | payer SELFPAY ==
[2018-12-23 03:44] VITALS: BP 146/85
[2018-12-23] MEDS ORDERED: Metoclopramide 10 MG/2 ML SDV IVPUSH ONE (03:45)
[2018-12-23] MEDS ORDERED: Sodium Chloride 0.9% 10 ML Syringe FLUSH PRN (03:45)
[2018-12-23] MEDS ORDERED: HYDROmorphone 1 MG/ML Syringe IVPUSH ONE (03:46)
[2018-12-23] MEDS ORDERED: LORazepam 2 MG/ML SDV IVPUSH ONE (03:46)
--- NOTE | 2018-12-23 03:49 | EDM.PDOC ---
ED HPI GENERAL MEDICAL PROBLEM - General Chief Complaint: Gastrointestinal Problem Stated Complaint: [facility] Time Seen by Provider: 12/23/18 03:44 Source of Information: Reports: Patient History Limitations: Reports: No Limitations - History of Present Illness INITIAL COMMENTS - FREE TEXT/NARRATIVE: 43-year-old male presents to the ED per [facility]. states she had to come in because he's been vomiting and is suspect there is blood in his emesis. He states he's been gripped been coming more short of breath over the last several days and cannot lay flat. States he got a little bit of a nap in before he came into the hospital tonight. Patient has cirrhosis of the liver secondary to alcoholism. 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 O2 sats are 99% but respect rate is 26/m. He has a lot of pressure in his upper abdomen. He states he vomited 3 times tonight. He' s not sure if there is blood in his emesis or not as he is color blind. There is no blood in his DAY or dried blood on his lips or clothing. Onset: Gradual ([place] worsening dyspnea over the last week.) Onset Date: 12/16/18 Duration: Chronic (Running problem with ascites due to cirrhosis of the liver.) Location: Reports: Chest, Abdomen (Shortness of breath diffuse abdominal pressure.), Lower Extremity, Left (Left lower extremity swelling and pain and injury to his knee when he twisted lately.), Lower Extremity, Right (Severe edema of his lower extremity on the right side as well). Denies: Head, Face, Neck Quality: Reports: Other Severity: Moderate (Dyspneic with a lot of abdominal pressure discomfort) Improves with: Reports: None ( 8 on a 10) Worsens with: Reports: None, Other (Lying down makes him much more short of breath.), Movement Context: Denies: Activity, Exercise, Lifting, Sick Contact, Trauma, Other Associated Symptoms: Reports: Cough, Loss of Appetite, Nausea/Vomiting, Shortness of Breath, Weakness. Denies: Confusion, Chest Pain, Diaphoresis ( Occasional cough.), Fever/Chills, Headaches, Rash, Syncope Treatments ERGONOMICS CONSULTANT: Reports: Other (see below) Abdominal Pain Score (Numeric/FACES): 9 - Related Data Allergies Allergy/AdvReac Type Severity Reaction Status Date / Time No Known Allergies Allergy Verified 12/23/18 03:43 Home Meds: Home Meds Bumetanide [Bumex] 1 tab PO QAM #20 tab 11/01/18 [Rx] Propranolol [Inderal] 20 mg PO TID 12/23/18 [History] Past Medical History - Past Health History Medical/Surgical History: Denies Medical/Surgical History Cardiovascular History: Reports: Hypertension (untreated) Gastrointestinal History: Reports: Cirrhosis (presumably alcoholic, with ascites , untreated) Genitourinary History: Reports: Renal Calculus Musculoskeletal History: Reports: Fracture (nose) Psychiatric History: Reports: Addiction (alcohol), Anxiety (untreated) - Past Surgical History GI Surgical History: Reports: Other (See Below) (Therapeutic paracentesis 2017) Social & Family History - Family History Family Medical History: Noncontributory - Caffeine Use Caffeine Use: Reports: None - Living Situation & Occupation Living situation: Reports: (), Other (Roomate/friend) 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 Denies : Fever, Chills HEENT: Reports: Other Respiratory: Reports: Shortness of Breath (He states he is color blind.), Cough. Denies: Wheezing, Pleuritic Chest Pain Cardiovascular: Reports: Blood Pressure Problem, Dyspnea on Exertion (Neck edema both lower extremities are likely.), Edema. Denies: Chest Pain, Claudication, Lightheadedness, Orthopnea (Mildly elevated) Endocrine: Reports: Fatigue GI/Abdominal: Reports: Abdominal Pain (Diffuse pressure in his abdomen from ascites distention.), Diarrhea (Cozaar loose usually 3 or 4 times daily.) : Reports: Frequency (Due to diuretics.) Musculoskeletal: Reports: Back Pain, Joint Pain Skin: Reports: Other (Slight left knee since he twisted it. It is erythematous and very scaly both lower extremities due to severe dependent chronic edema.) Neurological: Reports: No Symptoms Psychiatric: Reports: No Symptoms Hematologic/Lymphatic: Reports: No Symptoms Immunologic: Reports: No Symptoms ED EXAM, GI/ABD - Physical Exam Exam: See Below Exam Limited By: No Limitations General Appearance: Alert, WD/WN, Moderate Distress (Dyspneic at rest tachypnea 24-26/m) Eyes: Bilateral: Normal Appearance (Very mild scleral icterus bilaterally.) Throat/Mouth: Other Head: Atraumatic, Normocephalic, Sinus Tenderness Neck: Normal Inspection, Supple, Non-Tender, Full Range of Motion. No: Lymphadenopathy (L), Lymphadenopathy (R) Respiratory/Chest: No Accessory Muscle Use, Respiratory Distress (24-26/m.), Decreased Breath Sounds, Rales (Increased air in Crystal of both posterior lung balderas. I and rales bilaterally.). No: Lungs Clear, Normal Breath Sounds Cardiovascular: Tachycardia (Sting tachycardia of 1 16/m.), Other (Doses in his lower extremities cannot be felt because of severe dependent edema.). No: Normal Peripheral Pulses GI/Abdominal Exam: Normal Bowel Sounds, Other (Abdomen is very distended and firm to palpation due to ascites. No localized tenderness or masses.) Extremities: Other (Left lower extremities are grossly edematous up past the knees i.e. 4+ pitting edema. They're mildly erythematous bilaterally and very scaly due to compression of the circulation to the skin. There are no open wounds or infection lesions at this time. The left knee is quite warm to palpation suggesting underlying infection inflammation) Neurological: Alert, Oriented, CN II-XII Intact, Normal Cognition Psychiatric: Normal Affect Skin Exam: Warm, Dry, Intact, Rash (Both lower extremities due to venous stasis dermatitis and scaling of the skin due to pressure from severe dependent edema) Course - Vital Signs Last Recorded V/S: Last Vital Signs Temp 36.8 C 12/23/18 03:34 Pulse 116 H 12/23/18 03:34 Resp BP 146/85 H 12/23/18 03:34 Pulse Ox 98 12/23/18 03:34 - Orders/Labs/Meds Orders: Active Orders 24 hr Category Date Time Status Peripheral IV Care [RC] . DIRECTED Care 12/23/18 03:46 Active Chest 1V Frontal [CR] Stat Exams 12/23/18 03:44 Taken Sodium Chloride 0.9% [Saline Flush] Med 12/23/18 03:45 Active 10 ml FLUSH ASDIRECTED PRN Peripheral IV Insertion Adult [OM.PC] Stat Oth 12/23/18 03:45 Ordered Medication Orders Sodium Chloride (Saline Flush) 10 ml FLUSH ASDIRECTED PRN PRN Reason: Keep Vein Open Last Admin: 12/23/18 03:54 Dose: 10 ml Labs: Laboratory Tests 12/23/18 12/23/18 12/23/18 Range/Units 03:45 03:45 03:45 WBC 6.36 (4.23-9.07) K/mm3 RBC 3.52 L (4.63-6.08) M/mm3 Hgb 9.2 L (13.7-17.5) gm/L Hct 28.7 L (40.1-51.0) % MCV 81.5 (79.0-92.2) fl MCH 26.1 (25.7-32.2) pg MCHC 32.1 L (32.2-35.5) g/dl RDW Std Deviation 58.8 H (35.1-43.9) fL Plt Count 161 L (163-337) K/mm3 MPV 8.1 L (9.4-12.3) fl Neutrophils % (Manual) 48 (40-60) % Band Neutrophils % 2 (0-10) % Lymphocytes % (Manual) 31 (20-40) % Atypical Lymphs % 0 % Monocytes % (Manual) 10 (2-10) % Eosinophils % (Manual) 9 H (0.8-7.0) % Basophils % (Manual) 0 L (0.2-1.2) Platelet Estimate Adequate Target Cells 2+ moderate RBC Morph Comment Not Reportable PT 14.8 H (9.5-12.1) SECONDS INR 1.37 APTT 30 (24-31) SECONDS Sodium 140 (136-145) mEq/L Potassium 3.7 (3.5-5.1) mEq/L Chloride 105 (98-107) mEq/L Carbon Dioxide 25 (21-32) mEq/L Anion Gap 13.7 (5-15) BUN 10 (7-18) mg/dL Creatinine 0.7 (0.7-1.3) mg/dL Est Cr Clr Drug Dosing 160.95 mL/min Estimated GFR (MDRD) > 60 (>60) mL/min BUN/Creatinine Ratio 14.3 (14-18) Glucose 96 (74-106) mg/dL Calcium 8.0 L (8.5-10.1) mg/dL Magnesium 1.9 (1.8-2.4) mg/dl Total Bilirubin 1.6 H (0.2-1.0) mg/dL AST 152 H (15-37) U/L ALT 26 (16-63) U/L Alkaline Phosphatase 144 H (46-116) U/L Troponin I 0.022 (0.00-0.056) ng/mL C-Reactive Protein 0.6 (<1.0) mg/dL NT-Pro-B Natriuret Pep (0-125) pg/mL Total Protein 8.0 (6.4-8.2) g/dl Albumin 2.6 L (3.4-5.0) g/dl Globulin 5.4 gm/dL Albumin/Globulin Ratio 0.5 L (1-2) Ethyl Alcohol 0.22 (0.00) gm% 12/23/18 Range/Units 03:45 WBC (4.23-9.07) K/mm3 RBC (4.63-6.08) M/mm3 Hgb (13.7-17.5) gm/L Hct (40.1-51.0) % MCV (79.0-92.2) fl MCH (25.7-32.2) pg MCHC (32.2-35.5) g/dl RDW Std Deviation (35.1-43.9) fL Plt Count (163-337) K/mm3 MPV (9.4-12.3) fl Neutrophils % (Manual) (40-60) % Band Neutrophils % (0-10) % Lymphocytes % (Manual) (20-40) % Atypical Lymphs % % Monocytes % (Manual) (2-10) % Eosinophils % (Manual) (0.8-7.0) % Basophils % (Manual) (0.2-1.2) Platelet Estimate Target Cells RBC Morph Comment PT (9.5-12.1) SECONDS INR APTT (24-31) SECONDS Sodium (136-145) mEq/L Potassium (3.5-5.1) mEq/L Chloride (98-107) mEq/L Carbon Dioxide (21-32) mEq/L Anion Gap (5-15) BUN (7-18) mg/dL Creatinine (0.7-1.3) mg/dL Est Cr Clr Drug Dosing mL/min Estimated GFR (MDRD) (>60) mL/min BUN/Creatinine Ratio (14-18) Glucose (74-106) mg/dL Calcium (8.5-10.1) mg/dL Magnesium (1.8-2.4) mg/dl Total Bilirubin (0.2-1.0) mg/dL AST (15-37) U/L ALT (16-63) U/L Alkaline Phosphatase (46-116) U/L Troponin I (0.00-0.056) ng/mL C-Reactive Protein (<1.0) mg/dL NT-Pro-B Natriuret Pep 80 (0-125) pg/mL Total Protein (6.4-8.2) g/dl Albumin (3.4-5.0) g/dl Globulin gm/dL Albumin/Globulin Ratio (1-2) Ethyl Alcohol (0.00) gm% Meds: Medications Generic Name Dose Route Start Last Admin Trade Name Freq PRN Reason Stop Dose Admin Sodium Chloride 10 ml 12/23/18 03:45 12/23/18 03:54 Saline Flush FLUSH 10 ml ASDIRECTED PRN Administration Keep Vein Open Discontinued Medications Generic Name Dose Route Start Last Admin Trade Name Freq PRN Reason Stop Dose Admin Hydromorphone HCl 1 mg 12/23/18 03:46 12/23/18 03:55 Dilaudid IVPUSH 12/23/18 03:47 1 mg ONETIME ONE Administration Albumin Human 12.5 gm in 50 mls @ 100 mls/hr 12/23/18 04:08 12/23/18 05:22 Flexbumin 25% IV 12/23/18 04:37 100 mls/hr ONETIME ONE Administration Lidocaine/Epinephrine 20 ml 12/23/18 03:56 12/23/18 04:03 Xylocaine 1% With Epinephrine 1:100,000 INJECT 12/23/18 03:57 20 ml ONETIME ONE Administration Lorazepam 1 mg 12/23/18 03:46 12/23/18 03:54 Ativan IVPUSH 12/23/18 03:47 1 mg ONETIME ONE Administration Metoclopramide HCl 10 mg 12/23/18 03:45 12/23/18 03:54 Reglan IVPUSH 12/23/18 03:46 10 mg ONETIME ONE Administration - Radiology Interpretation Free Text/Narrative:: 43-year-old male who suffers from end-stage cirrhosis of the liver with severe ascites and dyspnea presents to the ED this morning in the hopes of achieving a paracentesis. Patient/paracentesis was about a month ago. Not sure how much weight he is gained. He is short of breath on minimal exertion and even at rest. Cannot lay flat. Could get some any sleep tonight due to the pressure in his abdomen. Will have his labs done including coags. We'll then plan to do paracentesis in the ED. - Re-Assessments/Exams Free Text/Narrative Re-Assessment/Exam: 12/23/18 04:09 plan will be to give him a bile of 25% albumin after the procedure 50 mils over one half hour. 12/23/18: 04:45: Labs reveal a normal white count at 6.36. Differentials 40% neutrophils 2% bands. Hemoglobin is low at 9.2 with hematocrit of 28.7. MCV is 81.5. Platelet count is 161,000. PT was 14.8 with an INR of 1.37 August anticoagulated. PTT is 30. Sodium was 140 with potassium of 3.7. Chloride 105 with a bicarbonate of 25. Anion gap is 13.7. BUN was 10 with creatinine of 0.7. GFR remains greater than 60. Glucose is 96 calcium 8.0. Magnesium 1.9. Bilirubin 1.6 AST 152 with an ALT of 26. Alkaline phosphatase days 144. Troponin I was less than 0.022. C-reactive protein 0.6. Total protein 8.0 with an albumin fraction of 2.6. Blood alcohol 0.22 g percent 12/23/18 05:21 Paracentesis done through single puncture wound right lower quadrant performed with ultrasound guidance. Removed 10,400mls--10.4L. patient slept through the entire procedure. Fluid removed was light yellow in color. One suture placed to close the stab wound right lower quadrant and no drainage was identified. 12/23/18 07:14 Patient has been resting and sleeping soundly since given IV analgesia and Ativan 1 mg. Essentially he will be ready for discharge once he is awake and alert. Departure - Departure Time of Disposition: 08:00 Disposition: Home, Self-Care 01 Condition: Fair Clinical Impression: Ascites due to alcoholic cirrhosis, S/P abdominal paracentesis - Discharge Information *PRESCRIPTION DRUG MONITORING PROGRAM REVIEWED*: Not Applicable *COPY OF PRESCRIPTION DRUG MONITORING REPORT IN PATIENT BAO: Not Applicable Instructions: Paracentesis Referrals: PCP,None [Primary Care Provider] - Forms: ED Department Discharge Additional Instructions: Evaluation the emergency room tonight in regards to increased abdominal pressure discomfort with difficulty breathing due to severe ascites secondary to alcohol-induced cirrhosis of the liver. As you indicated by about one month since her last paracentesis. He came into the ED tonight with intention to have paracentesis carried out to relieve your shortness of breath and abdominal pain/ discomfort. Removed 10.4 L of fluid from your abdomen through the right lower quadrant with no problems. Continue all current medications as before. There are also given an infusion of albumin intravenously to try and prevent or slow down the inflammation of fluid collection in your abdomen. While but Dr. Fraser as per your plan. - My Orders Last 24 Hours: My Active Orders 12/23/18 03:44 Chest 1V Frontal [CR] Stat 12/23/18 03:45 Sodium Chloride 0.9% [Saline Flush] 10 ml FLUSH ASDIRECTED PRN Peripheral IV Insertion Adult [OM.PC] Stat 12/23/18 03:46 Peripheral IV Care [RC] . DIRECTED - Assessment/Plan Last 24 Hours: My Active Orders 12/23/18 03:44 Chest 1V Frontal [CR] Stat 12/23/18 03:45 Sodium Chloride 0.9% [Saline Flush] 10 ml FLUSH ASDIRECTED PRN Peripheral IV Insertion Adult [OM.PC] Stat 12/23/18 03:46 Peripheral IV Care [RC] . DIRECTED Paracentesis - Paracentesis Paracentesis Indication: ascites Location: RLQ Skin prep: CDC/MBT Guidelines, Sterile Drapes, Chlorhexidine Ultrasound guided: Yes Local anesthesia: other (lidocaine 1% with epinephrine) Local anesthesia volume: 10cc Number of Attempts: 1 Device Used: 8 Fr kit device Fluid: yellow Aspirated volume (mls): 1,040 Complications: No Complication Description: one suture placed to close the wound with no further drainage. Dressing: adhesive dressing
[2018-12-23] MEDS ORDERED: Lidocaine 1% with EPINEPHrine 1:100,000 20 ML MDV INJECT ONE (03:56)
[2018-12-23] MEDS ORDERED: Albumin 25% 12.5 GM/50 ML BAG IV ONE (04:08)
--- NOTE | 2018-12-23 07:17 | CR ---
Chest: Frontal view of the chest was obtained. Comparison: Prior chest x-ray of 11/01/18. Heart size and mediastinum are normal. Lungs are clear. Bony structures are unremarkable. Impression: 1. Nothing acute is seen on frontal chest x-ray. Diagnostic code #1
== END 2018-12-23 10:55 | disposition home or self-care (01) ==
LOC: JD.ED 03:33
DX: K70.31 Alcoholic cirrhosis of liver with ascites (principal); I10 Essential (primary) hypertension; Z79.899 Other long term (current) drug therapy
CPT/HCPCS: 36415; 49082; 71045; 80053; 82550; 83735; 83880; 84484; 85007; 85027; 85610; 85730; 86140; 96365; 96375; 99284; G0480; J1170; J2060; J2765; P9047

== ENCOUNTER 2019-01-06 20:27 | Emergency (ER) | payer SELFPAY ==
[2019-01-06 20:42] VITALS: BP 133/83
--- NOTE | 2019-01-06 22:02 | EDM.PDOC ---
ED HPI GENERAL MEDICAL PROBLEM - General Chief Complaint: Abdominal Pain Stated Complaint: ABDOMINAL PAIN/LEG PAIN/RASH Time Seen by Provider: 01/06/19 21:10 Source of Information: Reports: Patient, RN Notes Reviewed - History of Present Illness INITIAL COMMENTS - FREE TEXT/NARRATIVE: 23-year-old male comes in with upper abdominal discomfort, abdominal distention , swelling of both legs ankles and feet. He does have history of alcohol dependency, cirrhosis. It sounds like he has had abdominal paracentesis at least a couple of times with his last paracentesis about 2 weeks ago. He states his ankles and feet are getting more swollen. No having upper abdominal discomfort today. He does admit that he has had some whiskey this evening prior to coming in here to the ED. No chest pain or difficulty breathing. No recent fever or chills. Abdominal Pain Score (Numeric/FACES): 8 - Related Data Allergies Allergy/AdvReac Type Severity Reaction Status Date / Time No Known Allergies Allergy Verified 01/06/19 20:37 Home Meds: Home Meds Propranolol [Inderal] 20 mg PO TID 12/23/18 [History] Bumetanide [Bumex] 1 mg PO QAM 01/06/19 [History] Past Medical History - Past Health History Medical/Surgical History: Denies Medical/Surgical History Cardiovascular History: Reports: Hypertension Gastrointestinal History: Reports: Cirrhosis Genitourinary History: Reports: Renal Calculus Musculoskeletal History: Reports: Fracture Psychiatric History: Reports: Addiction, Anxiety - Past Surgical History GI Surgical History: Reports: Other (See Below) Other GI Surgeries/Procedures: ascites Social & Family History - Family History Family Medical History: Noncontributory - Caffeine Use Caffeine Use: Reports: Energy Drinks, Soda - Recreational Drug Use Recreational Drug Use: No - Living Situation & Occupation Living situation: Reports: (), Other (Roomate/friend) 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 Denies: Hematochezia, Melena Musculoskeletal: Reports: Leg Pain (Bilateral associated with bilateral lower leg and ankle edema) Skin: Reports: Pruritis, Rash (Abdomen and lower legs) Neurological: Denies: Numbness, Tingling, Difficulty Walking, Weakness ED EXAM, GI/ABD - Physical Exam Exam: See Below General Appearance: Alert, No Apparent Distress Eyes: Bilateral: Normal Appearance Throat/Mouth: Normal Inspection Head: Atraumatic. No: Facial Swelling Neck: Supple, Full Range of Motion Respiratory/Chest: No Respiratory Distress, Lungs Clear, Normal Breath Sounds. No: Rhonchi, Wheezing Cardiovascular: Regular Rate, Rhythm GI/Abdominal Exam: Distended (Compatible with moderate ascites), Tender (Mild upper midabdominal tenderness). No: Guarding, Rebound Extremities: Pedal Edema (Mild to moderate bilateral distal lower legs, ankles and feet) Neurological: Alert, No Motor/Sensory Deficits Skin Exam: Warm, Dry Course - Vital Signs Last Recorded V/S: Last Vital Signs Temp 97.6 F 01/06/19 20:38 Pulse 65 01/06/19 20:38 Resp 18 01/06/19 20:38 BP 133/83 01/06/19 20:38 Pulse Ox 99 01/06/19 20:38 - Orders/Labs/Meds Labs: Laboratory Tests 01/06/19 01/06/19 Range/Units 22:45 22:45 WBC 6.04 (4.23-9.07) K/mm3 RBC 3.58 L (4.63-6.08) M/mm3 Hgb 9.4 L (13.7-17.5) gm/L Hct 29.8 L (40.1-51.0) % MCV 83.2 (79.0-92.2) fl MCH 26.3 (25.7-32.2) pg MCHC 31.5 L (32.2-35.5) g/dl RDW Std Deviation 56.6 H (35.1-43.9) fL Plt Count 215 (163-337) K/mm3 MPV 9.0 L (9.4-12.3) fl Neut % (Auto) 44.1 (34.0-67.9) % Lymph % (Auto) 27.3 (21.8-53.1) % Bell % (Auto) 8.8 (5.3-12.2) % Eos % (Auto) 16.6 H (0.8-7.0) Baso % (Auto) 3.0 H (0.1-1.2) % Neut # (Auto) 2.67 (1.78-5.38) K/mm3 Lymph # (Auto) 1.65 (1.32-3.57) K/mm3 Bell # (Auto) 0.53 (0.30-0.82) K/mm3 Eos # (Auto) 1.00 H (0.04-0.54) K/mm3 Baso # (Auto) 0.18 H (0.01-0.08) K/mm3 Manual Slide Review Abnormal smear Sodium 141 (136-145) mEq/L Potassium 3.8 (3.5-5.1) mEq/L Chloride 106 (98-107) mEq/L Carbon Dioxide 25 (21-32) mEq/L Anion Gap 13.8 (5-15) BUN 6 L (7-18) mg/dL Creatinine 0.7 (0.7-1.3) mg/dL Est Cr Clr Drug Dosing 160.95 mL/min Estimated GFR (MDRD) > 60 (>60) mL/min BUN/Creatinine Ratio 8.6 L (14-18) Glucose 89 (74-106) mg/dL Calcium 8.2 L (8.5-10.1) mg/dL Total Bilirubin 1.8 H (0.2-1.0) mg/dL AST 142 H (15-37) U/L ALT 27 (16-63) U/L Alkaline Phosphatase 114 (46-116) U/L Total Protein 7.9 (6.4-8.2) g/dl Albumin 2.5 L (3.4-5.0) g/dl Globulin 5.4 gm/dL Albumin/Globulin Ratio 0.5 L (1-2) Meds: Medications Discontinued Medications Generic Name Dose Route Start Last Admin Trade Name Freq PRN Reason Stop Dose Admin Hydromorphone HCl 1 mg 01/06/19 23:30 01/06/19 23:35 Dilaudid IVPUSH 01/06/19 23:31 1 mg ONETIME ONE Administration - Re-Assessments/Exams Free Text/Narrative Re-Assessment/Exam: 01/07/19 04:30, blood count, chemistries has documented per lab report, did not check blood alcohol but he has been drinking today, alcohol quite elevated on his last 2 visits to the ED so unfortunately he does continue to drink alcohol. O2 sats are excellent, he is not in respiratory distress. He does not need paracentesis tonight, our surgeon stitch bonder machine operator helper tonight is available only for trauma emergencies. It does not look like he is been compliant with taking the Bumex every day. He had 20 tablets prescribed are filled November 01 about 9 weeks ago and has 10 tablets left showing that he is only taken 10 doses in the last 9 weeks since getting that filled 9 weeks ago. Overall of this with him. I talked about the importance of a high protein diet. The need to stop drinking. Elevating his legs as much as possible and taking the Bumex daily. He does have a clinic appointment in 2 days. Discharge instructions as documented. Departure - Departure Time of Disposition: 23:59 Disposition: Home, Self-Care 01 Condition: Fair Clinical Impression: Cirrhosis of liver Qualifiers: Hepatic cirrhosis type: alcoholic cirrhosis Ascites presence: with ascites Qualified Code(s): K70.31 - Alcoholic cirrhosis of liver with ascites - Discharge Information Instructions: Cirrhosis Referrals: Lilli Fraser MD [Primary Care Provider] - Forms: ED Department Discharge Additional Instructions: avoid further alcohol as best you can, bumex 1 mg every day as previously prescribed, elevate legs as much as possible, try get more protein in your diet, consider ensure type shake once or twice daily, See Dr Fraser as planned. See Dr Calderon, Surgeon with [facility] next available appointment for possible paracentisis
[2019-01-06] MEDS ORDERED: HYDROmorphone 1 MG/ML Syringe IVPUSH ONE (23:30)
== END 2019-01-07 00:13 | disposition home or self-care (01) ==
LOC: JD.ED 20:27
DX: K70.31 Alcoholic cirrhosis of liver with ascites (principal); I10 Essential (primary) hypertension
CPT/HCPCS: 36415; 80053; 85025; 96372; 99283; J1170; 99284

== ENCOUNTER 2019-01-30 18:44 | Emergency (ER) | payer SELFPAY ==
[2019-01-30 19:00] VITALS: BP 123/68
--- NOTE | 2019-01-30 21:39 | EDM.PDOC ---
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 He has not undergone a liver biopsy yet. He has undergone paracentesis on 5 occasions, most recently on or about 01/17/2019 at [facility]. He states that he was placed on ciprofloxacin 500 mg po BID for 5 days following the paracentesis. The patient now presents with upper abdominal pain, crampy, stabbing, and twisting in character, along with watery diarrhea, since this past Saturday, 01/27. He has not found any modifiers of his symptoms. No recent nausea or vomiting. No recent fever. No recent urinary symptoms. No recent cough, dyspnea , or wheezing. No recent chest pain or palpitations. The patient does not recall eating any bad food. No one else in his household is similarly ill. No recent travel. The patient states that he has not taken any [id number] or home remedies to try to treat his symptoms, however, he states that he ordinarily takes lactulose, but has held it for the past 3-4 days secondary to his watery diarrhea. The patient's PCP had been Dr. Lilli Fraser, however, the patient is switching to Dr. Gamez, whom he has not yet met. The patient's Fat Pressroom Worker is Dr. Ruddy Patel, at [facility]. Upper Abdomen Pain Score (Numeric/FACES): 8 - Related Data Allergies Allergy/AdvReac Type Severity Reaction Status Date / Time No Known Allergies Allergy Verified 01/06/19 20:37 Home Meds: Home Meds B Complex With Vitamin C [B-Complex with C] 1 tab PO DAILY 01/30/19 [History] Fish Oil/[place]-3 Fatty Acids [Fish Oil 1,000 MG] 1 gram PO DAILY 01/30/19 [ History] Lactulose [Chronulac] 45 ml PO BID 01/30/19 [History] Propranolol [Inderal] 20 mg PO TID 01/30/19 [History] Spironolactone [Aldactone] 25 mg PO DAILY 01/30/19 [History] Past Medical History Cardiovascular History: Reports: Hypertension Gastrointestinal History: Reports: Cirrhosis (likely alcoholic. Ascites.) Genitourinary History: Reports: Renal Calculus Musculoskeletal History: Reports: Fracture (nose) Psychiatric History: Reports: Addiction (alcohol), Anxiety (untreated) - Past Surgical History GI Surgical History: Reports: Other (See Below) (Therapeutic paracentesis x 5) Social & Family History - Family History Family Medical History: Noncontributory - Tobacco Use Smoking Status *Q: Current Some Day Smoker Tobacco Use Within Last Twelve Months: Smokeless Tobacco (chews 1 can/week) Years of Tobacco use: 27 Packs/Tins Daily: 0.1 Packs/Tins Daily Comment: Down from 1 ppd - Caffeine Use Caffeine Use: Reports: Coffee, Soda, Tea - Alcohol Use Alcohol Use History: Yes Date/Time of Last Drink Comment: late December 2018 Alcohol Use Frequency: Daily - Recreational Drug Use Recreational Drug Use: No - Living Situation & Occupation Living situation: Reports: , with Family 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 ED EXAM, GI/ABD - Physical Exam Exam: See Below Exam Limited By: No Limitations General Appearance: Alert, WD/WN, No Apparent Distress Eyes: Bilateral: Normal Appearance, EOMI Ears: Normal External Exam, Hearing Grossly Normal Nose: Normal Inspection Throat/Mouth: Normal Inspection, Normal Lips, Normal Voice, No Airway Compromise Head: Atraumatic, Normocephalic Neck: Normal Inspection, Full Range of Motion Respiratory/Chest: No Respiratory Distress, Lungs Clear, Normal Breath Sounds, No Accessory Muscle Use Cardiovascular: Normal Peripheral Pulses, Regular Rate, Rhythm, No Edema, No Gallop, No JVD, No Murmur, No Rub GI/Abdominal Exam: Normal Bowel Sounds, Soft, No Organomegaly, No Distention ( No appreciable ascites), No Abnormal Bruit, No Mass, Tender (Epigastric region only. Nontender elsewhere.) (Male) Exam: Deferred Rectal (Males) Exam: Deferred Back Exam: Normal Inspection, Full Range of Motion. No: CVA Tenderness (L), CVA Tenderness (R) Extremities: Normal Inspection, Normal Range of Motion, No Pedal Edema, Normal Capillary Refill Neurological: Alert, Oriented, Normal Cognition, No Motor/Sensory Deficits Psychiatric: Normal Affect Skin Exam: Warm, Dry, Intact, Normal Color, No Rash Course - Vital Signs Last Recorded V/S: Last Vital Signs Temp 37.2 C 01/30/19 18:57 Pulse 74 01/30/19 18:57 Resp 20 01/30/19 18:57 BP 123/68 01/30/19 18:57 Pulse Ox 100 01/30/19 18:57 Orthostatic Blood Pressure [ 125/69 Standing] Orthostatic Blood Pressure [ 122/70 Supine] - Orders/Labs/Meds Orders: Active Orders 24 hr Category Date Time Status Orthostatic Vital Signs [RC] STAT Care 01/30/19 20:31 Active Labs: Laboratory Tests 01/30/19 01/30/19 Range/Units 20:50 20:50 WBC 5.93 (4.23-9.07) K/mm3 RBC 3.51 L (4.63-6.08) M/mm3 Hgb 9.4 L (13.7-17.5) gm/L Hct 28.7 L (40.1-51.0) % MCV 81.8 (79.0-92.2) fl MCH 26.8 (25.7-32.2) pg MCHC 32.8 (32.2-35.5) g/dl RDW Std Deviation 58.1 H (35.1-43.9) fL Plt Count 215 (163-337) K/mm3 MPV 9.6 (9.4-12.3) fl Neutrophils % (Manual) 53 (40-60) % Band Neutrophils % 0 (0-10) % Lymphocytes % (Manual) 31 (20-40) % Atypical Lymphs % 0 % Monocytes % (Manual) 8 (2-10) % Eosinophils % (Manual) 7 (0.8-7.0) % Basophils % (Manual) 1 (0.2-1.2) Platelet Estimate Adequate Anisocytosis 2+ moderate Macrocytosis 1+ slight Target Cells Few Ovalocytes Few RBC Morph Comment Not Reportable Sodium 137 (136-145) mEq/L Potassium 3.8 (3.5-5.1) mEq/L Chloride 105 (98-107) mEq/L Carbon Dioxide 23 (21-32) mEq/L Anion Gap 12.8 (5-15) BUN 14 (7-18) mg/dL Creatinine 0.8 (0.7-1.3) mg/dL Est Cr Clr Drug Dosing 140.83 mL/min Estimated GFR (MDRD) > 60 (>60) mL/min BUN/Creatinine Ratio 17.5 (14-18) Glucose 97 (74-106) mg/dL Calcium 8.4 L (8.5-10.1) mg/dL Magnesium 1.9 (1.8-2.4) mg/dl Total Bilirubin 1.1 H (0.2-1.0) mg/dL AST 139 H (15-37) U/L ALT 50 (16-63) U/L Alkaline Phosphatase 139 H (46-116) U/L Total Protein 7.9 (6.4-8.2) g/dl Albumin 2.7 L (3.4-5.0) g/dl Globulin 5.2 gm/dL Albumin/Globulin Ratio 0.5 L (1-2) Lipase 719 H (73-393) U/L Meds: Medications Discontinued Medications Generic Name Dose Route Start Last Admin Trade Name Freq PRN Reason Stop Dose Admin Hydrocodone Bitart/Acetaminophen 2 tab 01/30/19 21:51 01/30/19 22:07 [place] 325-5 Mg PO 01/30/19 21:52 2 tab ONETIME ONE Administration Loperamide HCl 4 mg 01/30/19 21:51 01/30/19 22:07 Imodium PO 01/30/19 21:52 4 mg ONETIME STA Administration - Re-Assessments/Exams Free Text/Narrative Re-Assessment/Exam: 01/30/19 20:51 The patient is not orthostatic. 01/30/19 21:52 Test results discussed with the patient and his girlfriend. The patient is found to be modestly anemic, but nowhere near requiring a PRBC transfusion. His CMP is largely unremarkable. His lipase is elevated at 719, less than 3 times the upper limit of normal = 393, therefore not consistent with pancreatitis. That does not mean, however, that the patient's upper abdominal pain is not related to early or developing pancreatitis. His pain could also be related to his diarrhea, which appears to be viral. I offered to place the patient into observation, however, the patient declined. For tonight's purposes, the patient will receive 4 mg of loperamide and 2 tablets of [place], then be discharged home. He will return if his pain worsens. Departure - Departure Time of Disposition: 21:55 Disposition: Home, Self-Care 01 Condition: Fair Clinical Impression: Epigastric abdominal pain of unknown etiology, Diarrhea, Elevated lipase - Discharge Information *PRESCRIPTION DRUG MONITORING PROGRAM REVIEWED*: Not Applicable *COPY OF PRESCRIPTION DRUG MONITORING REPORT IN PATIENT BAO: Not Applicable Instructions: Abdominal Pain, Adult, [id number], Diarrhea, Adult, Easy-to- Read Referrals: Ephraim Gamez MD [Primary Care Provider] - Forms: ED Department Discharge Additional Instructions: You were seen in the emergency room for upper abdominal pain and watery diarrhea. Workup in the ER included blood work and positional blood pressure checks. Your bloodwork found your lipase (pancreas enzyme) to be modestly elevated at 719. You are moderately anemic, with a hemoglobin of 9.4. The remainder of your blood work was unremarkable, and you are not dehydrated. The cause of your upper abdominal pain is not entirely clear, but could be due to early pancreatitis. Placement into observation was offered, but declined. You have been started on the antidiarrhea medicine loperamide (Imodium). Loperamide is available [id number]. Take 1 tablet after each loose bowel movement, to a total of 2 tablets within a 24-hour period. You were also given 2 tablets of the opioid pain reliever [place]. Do not drive or operate heavy machinery for 10 hours. Continue to abstain from alcohol, and follow-up with your Fat Pressroom Worker in [place] at the next available appointment. If your abdominal pain worsens, or if you develop nausea and vomiting, or a fever, please return to the ER for reevaluation. - My Orders Last 24 Hours: My Active Orders 01/30/19 20:31 Orthostatic Vital Signs [RC] STAT - Assessment/Plan Last 24 Hours: My Active Orders 01/30/19 20:31 Orthostatic Vital Signs [RC] STAT
[2019-01-30] MEDS ORDERED: Acetaminophen/HYDROcodone 325-5 MG Tab PO ONE (21:51)
[2019-01-30] MEDS ORDERED: Loperamide 2 MG Cap PO STA (21:51)
== END 2019-01-30 22:10 | disposition home or self-care (01) ==
LOC: JD.ED 18:44
DX: R10.13 Epigastric pain (principal); R19.7 Diarrhea, unspecified; R79.89 Other specified abnormal findings of blood chemistry; I10 Essential (primary) hypertension; F17.210 Nicotine dependence, cigarettes, uncomplicated
CPT/HCPCS: 36415; 80053; 83690; 83735; 85007; 85027; 99284; A9270; 99283

== ENCOUNTER 2021-05-15 15:50 | Emergency (ER) | payer SELFPAY ==
[2021-05-15 16:00] VITALS: BP 146/88; PULSE 96
--- NOTE | 2021-05-15 16:13 | EDM.PDOC ---
ED HPI GENERAL MEDICAL PROBLEM - General Chief Complaint: Lower Extremity Injury/Pain Stated Complaint: LEFT CALF INJURY/PAIN Time Seen by Provider: 05/15/21 15:57 Source of Information: Reports: Patient, RN Notes Reviewed History Limitations: Reports: No Limitations - History of Present Illness INITIAL COMMENTS - FREE TEXT/NARRATIVE: Patient is a 46-year-old male presenting to the emergency department for evaluation after being hit in his calf by a railroad tie. Reports that he was at work and the railroad tie fell, hitting him in his mid calf area. It did not land on top of his leg but rather hit it as it was falling down. He has some mild pain to the anterior aspect of his leg as well as discomfort overlying the calf. He is not on any blood thinners. Patient drank alcohol prior to coming to the ER to "numb the pain ". Left Leg Pain Score (Numeric/FACES): 4 - Related Data Allergies Allergy/AdvReac Type Severity Reaction Status Date / Time No Known Allergies Allergy Verified 05/15/21 16:00 Home Meds: Home Meds . [No Known Home Meds] 05/15/21 [History] Past Medical History - Past Health History Medical/Surgical History: Denies Medical/Surgical History Cardiovascular History: Reports: Hypertension Gastrointestinal History: Reports: Cirrhosis Genitourinary History: Reports: Renal Calculus Musculoskeletal History: Reports: Fracture Psychiatric History: Reports: Addiction, Anxiety - Past Surgical History GI Surgical History: Reports: Other (See Below) Other GI Surgeries/Procedures: ascites Social & Family History - Family History Family Medical History: No Pertinent Family History - Tobacco Use Tobacco Use Status *Q: Current Every Day Tobacco User Years of Tobacco use: 40 Packs/Tins Daily: 0.5 - Caffeine Use Caffeine Use: Reports: None - Recreational Drug Use Recreational Drug Use: Yes Recreational Drug Type: Reports: Marijuana/Hashish - Living Situation & Occupation Living situation: Reports: , with Family 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) Review of Systems - Review of Systems Review Of Systems: See Below Constitutional: Reports: No Symptoms Eyes: Reports: No Symptoms Ears: Reports: No Symptoms Nose: Reports: No Symptoms Mouth/Throat: Reports: No Symptoms Respiratory: Reports: No Symptoms Cardiovascular: Reports: No Symptoms GI/Abdominal: Reports: No Symptoms Genitourinary: Reports: No Symptoms Musculoskeletal: Reports: Other (Left posterior calf pain) Skin: Reports: Bruising (Left posterior calf), Other (Abrasion to left posterior calf) Neurological: Reports: No Symptoms Psychiatric: Reports: No Symptoms ED EXAM, GENERAL - Physical Exam Exam: See Below Exam Limited By: No Limitations General Appearance: Alert, WD/WN, No Apparent Distress Respiratory/Chest: No Respiratory Distress, Lungs Clear, Normal Breath Sounds, No Accessory Muscle Use, Chest Non-Tender Cardiovascular: Normal Peripheral Pulses, Regular Rate, Rhythm, No Edema, No Gallop, No JVD, No Murmur, No Rub Extremities: Other (6 cm superficial abrasion to the left posterior calf with underlying hematoma.) Neurological: Alert, Oriented, CN II-XII Intact, Normal Cognition, Normal Gait, Normal Reflexes, No Motor/Sensory Deficits Psychiatric: Normal Affect, Normal Mood Course - Vital Signs Last Recorded V/S: Last Vital Signs Temp 99.1 F 05/15/21 15:57 Pulse 96 05/15/21 15:57 Resp 16 05/15/21 15:57 BP 146/88 H 05/15/21 15:57 Pulse Ox 96 05/15/21 15:57 - Re-Assessments/Exams Free Text/Narrative Re-Assessment/Exam: Patient is a 46-year-old male presenting to the emergency department with complaints of left calf pain after being hit in the leg with a railroad tie. He is able to walk on the extremity without difficulty, however states it does hurt. On exam, he has a 6 cm superficial abrasion to the left posterior calf with underlying hematoma. Mild tenderness to the anterior portion of the leg. I have ordered a tib-fib x-ray of the left lower extremity. 05/15/21 16:51 Tib-fib x-ray shows no evidence of fracture. Michael wrap was applied. Discussed with patient that he is suffering from soft tissue injury. Recommend intermittent ice and elevation as well as Tylenol or ibuprofen as needed for discomfort. Discussed return precautions including pain out of proportion to the injury or cold extremities as this would be concerning for compartment syndrome. He verbalized understanding of this. Discharge instructions as documented. Departure - Departure Time of Disposition: 16:52 Disposition: Home, Self-Care 01 Condition: Good Clinical Impression: Contusion of leg, left Qualifiers: Encounter type: initial encounter Qualified Code(s): S80.12XA - Contusion of left lower leg, initial encounter - Discharge Information *PRESCRIPTION DRUG MONITORING PROGRAM REVIEWED*: No *COPY OF PRESCRIPTION DRUG MONITORING REPORT IN PATIENT BAO: No Instructions: Contusion, [id number] Referrals: Ephraim Gamez MD [Primary Care Provider] - Forms: ED Department Discharge Additional Instructions: You were seen in the ER for evaluation of pain and swelling to your left calf after being hit by a falling railroad timber. Xrays were completed of your leg and show no fractures. You are suffering from a soft tissue contusion. Michael wrap has been applied to help with the swelling. Wear this as needed for the next few days. Recommend elevation of the extremity as well as intermittent ice. You may use OTC pain medications as needed. If you should experience worsening of pain out of proportion to the injury, cold, numbness or tingling of your left foot or any other concerning symptoms, please return to the ER for reevaluation. Sepsis Event Note (ED) - Evaluation Sepsis Screening Result: No Definite Risk - Focused Exam Vital Signs: Vital Signs Temp Pulse Resp BP Pulse Ox 05/15/21 15:57 99.1 F 96 16 146/88 H 96
--- NOTE | 2021-05-15 19:03 | CR ---
Left tibia and fibula: AP and lateral views of the left tibia and fibula were obtained. Comparison: No prior tibia or fibula study is available. No discrete fracture or other bony abnormality is appreciated. Impression: 1. Nothing acute is seen on 2 view left tibia and fibula study. Diagnostic code #1
== END 2021-05-15 17:26 | disposition home or self-care (01) ==
LOC: JD.ED 15:50
DX: S80.12XA Contusion of left lower leg, initial encounter (principal); I10 Essential (primary) hypertension; Z72.0 Tobacco use; W22.8XXA Striking against or struck by other objects, initial encounter
CPT/HCPCS: 73590-26-LT; 73590-LT; 99282; 99283-25

== ENCOUNTER 2023-06-20 22:00 | Emergency (ER) | payer OTHER ==
[2023-06-20 22:15] VITALS: BP 125/86; PULSE 82
[2023-06-20] MEDS ORDERED: Sulfamethoxazole/Trimethoprim 800-160 MG Tab PO ONE (22:38)
== END 2023-06-20 23:14 | disposition home or self-care (01) ==
LOC: JD.ED 22:00
DX: L02.512 Cutaneous abscess of left hand (principal); I10 Essential (primary) hypertension; Z79.899 Other long term (current) drug therapy
CPT/HCPCS: 99282; A9270

== ENCOUNTER 2024-03-14 19:36 | Emergency (ER) | payer MEDICARE, OTHER ==
[2024-03-14 23:32] VITALS: BP 144/89; PULSE 79
== END 2024-03-14 23:11 | disposition home or self-care (01) ==
LOC: JD.ED 19:36
DX: S80.11XA Contusion of right lower leg, initial encounter (principal); I10 Essential (primary) hypertension; F17.210 Nicotine dependence, cigarettes, uncomplicated; W20.8XXA Other cause of strike by thrown, projected or falling object, initial encounter
CPT/HCPCS: 73590-26-RT; 73590-RT; 73610-26-RT; 73610-RT; 73630-26-RT; 73630-RT; 99282; 99283

== ENCOUNTER 2024-09-05 13:10 | Emergency (ER) | payer MEDICARE ==
[2024-09-05 14:31] VITALS: BP 168/89; PULSE 89
== END 2024-09-05 14:40 | disposition home or self-care (01) ==
LOC: JD.ED 13:10
DX: Z13.30 Encounter for screening examination for mental health and behavioral disorders, unspecified (principal); I10 Essential (primary) hypertension
CPT/HCPCS: 99283

== ENCOUNTER 2024-12-20 15:37 | Emergency (ER) | payer MEDICARE ==
[2024-12-20 15:49] VITALS: BP 166/90; PULSE 103
[2024-12-20] MEDS: cefTRIAXone 2 GM Vial IVPUSH ONE (17:31)
[2024-12-20] MEDS: metroNIDAZOLE/Normal Saline 500 MG in Premix Bag 1 BAG IV ONE (17:31)
[2024-12-20 17:42] LABS: BASOPHILS ABSOLUTE AUTO 0.1 K/mm3 (0.0-0.2); BASOPHILS PERCENT AUTO 1.1 % (0.0-1.0); EOSINOPHILS ABSOLUTE AUTO 0.2 K/mm3 (0.0-0.4); EOSINOPHILS PERCENT AUTO 2.7 % (0.0-6.0); HEMATOCRIT 45.4 % (42.0-52.0); HEMOGLOBIN 15.7 gm/dl (14.0-18.0); IMMATURE GRAN ABSOLUTE AUTO 0.01 K/mm3 (0.00-0.05); IMMATURE GRAN PERCENT AUTO 0.2 % (0.0-0.4); LYMPHOCYTES ABSOLUTE AUTO 1.2 K/mm3 (1.0-4.8); LYMPHOCYTES PERCENT AUTO 20.5 % (24.0-44.0); MEAN CORPUSCULAR HEMOGLOBIN 32.8 pg (28.0-32.0); MEAN CORPUSCULAR HGB CONC 34.6 g/dl (32.0-36.0); MEAN PLATELET VOLUME 10.4 fl (9.4-12.4); MONOCYTES ABSOLUTE AUTO 0.6 K/mm3 (0.0-0.8); MONOCYTES PERCENT AUTO 11.3 % (0.0-8.0); NEUTROPHILS ABSOLUTE AUTO 3.6 K/mm3 (1.8-7.7); NEUTROPHILS PERCENT AUTO 64.2 % (41.0-71.0); PLATELET COUNT,PLT 144 K/mm3 (150-400); RED BLOOD CELL COUNT 4.78 M/mm3 (4.52-5.90)
[2024-12-20 18:03] LABS: A/G RATIO 0.6 (1-2); ALBUMIN 2.9 g/dl (3.4-5.0); ANION GAP 11.7 (5-15); BILIRUBIN TOTAL 1.5 mg/dL (0.2-1.0); BUN/CREATININE RATIO 11.4 (14-18); CALCIUM 8.9 mg/dL (8.5-10.1); CREATININE 0.7 mg/dL (0.7-1.3); EST CRCL DRUG DOSING (CG) 150.89 mL/min; POTASSIUM,K 3.7 mEq/L (3.5-5.1)
[2024-12-20 18:15] LABS: LACTIC ACID 2.7 mmol/L (0.4-2.0)
[2024-12-20] MEDS: Lactated Ringers 1,000 ML IV ONE (18:25)
== END 2024-12-20 21:34 | disposition home or self-care (01) ==
LOC: JD.ED 15:37
DX: S81.852A Open bite, left lower leg, initial encounter (principal); L03.116 Cellulitis of left lower limb; I10 Essential (primary) hypertension; Z79.899 Other long term (current) drug therapy; W54.0XXA Bitten by dog, initial encounter
CPT/HCPCS: 36415; 73590; 73610; 80053; 83605; 85025; 87040; 87070; 87075; 87077; 87186; 87205; 96361; 96365; 96375; 99283; J0696; J1836; J7120; 99284

== ENCOUNTER 2024-12-30 14:13 | Emergency (ER) | payer MEDICARE ==
[2024-12-30 14:55] VITALS: BP 161/101; PULSE 85
[2024-12-30 15:20] LABS: BASOPHILS ABSOLUTE AUTO 0.1 K/mm3 (0.0-0.2); BASOPHILS PERCENT AUTO 1.7 % (0.0-1.0); EOSINOPHILS ABSOLUTE AUTO 0.2 K/mm3 (0.0-0.4); EOSINOPHILS PERCENT AUTO 4.5 % (0.0-6.0); HEMATOCRIT 42.1 % (42.0-52.0); HEMOGLOBIN 14.3 gm/dl (14.0-18.0); IMMATURE GRAN ABSOLUTE AUTO 0.01 K/mm3 (0.00-0.05); IMMATURE GRAN PERCENT AUTO 0.2 % (0.0-0.4); LYMPHOCYTES ABSOLUTE AUTO 1.1 K/mm3 (1.0-4.8); LYMPHOCYTES PERCENT AUTO 25.8 % (24.0-44.0); MEAN CORPUSCULAR HEMOGLOBIN 32.6 pg (28.0-32.0); MEAN CORPUSCULAR VOLUME 96.1 fl (83.0-99.0); MEAN PLATELET VOLUME 9.7 fl (9.4-12.4); MONOCYTES ABSOLUTE AUTO 0.5 K/mm3 (0.0-0.8); MONOCYTES PERCENT AUTO 10.7 % (0.0-8.0); NEUTROPHILS ABSOLUTE AUTO 2.4 K/mm3 (1.8-7.7); NEUTROPHILS PERCENT AUTO 57.1 % (41.0-71.0); PLATELET COUNT,PLT 152 K/mm3 (150-400); RED BLOOD CELL COUNT 4.38 M/mm3 (4.52-5.90); WHITE BLOOD CELL COUNT,WBC 4.19 K/mm3 (3.9-11.3)
[2024-12-30 15:47] LABS: A/G RATIO 0.6 (1-2); ALBUMIN 2.8 g/dl (3.4-5.0); ANION GAP 12.9 (5-15); BILIRUBIN TOTAL 0.9 mg/dL (0.2-1.0); BUN/CREATININE RATIO 11.4 (14-18); CALCIUM 8.9 mg/dL (8.5-10.1); CREATININE 0.7 mg/dL (0.7-1.3); EST CRCL DRUG DOSING (CG) 150.89 mL/min; POTASSIUM,K 3.9 mEq/L (3.5-5.1); PROTEIN TOTAL,TP 7.5 g/dl (6.4-8.2)
[2024-12-30] MEDS: Iopamidol 755 Mg/ML 100 ML Bottle IVPUSH ONE (16:55)
[2024-12-30] MEDS: Sodium Chloride 0.9% 10 ML Syringe FLUSH PRN (16:55)
[2024-12-30] MEDS: Sodium Chloride 0.9% 100 ML IV SCH (16:56)
[2024-12-30] MEDS: Amoxicillin/Clavulanate K 875-125 MG Tab PO ONE (19:25)
[2024-12-30] MEDS: Levofloxacin 250 MG Tab PO ONE (19:25)
== END 2024-12-30 19:30 | disposition home or self-care (01) ==
LOC: JD.ED 14:13
DX: L03.116 Cellulitis of left lower limb (principal); I10 Essential (primary) hypertension; Z79.899 Other long term (current) drug therapy
CPT/HCPCS: 36415; 73701; 80053; 85025; 93005; 99284; A9270; Q9967